=== PATIENT | male | born 1930 | race Caucasian/White ===

== ENCOUNTER 2022-05-10 14:32 | Inpatient (IN) ==
[2022-05-10 15:23] LABS: POC Calcium, Ionized 1.14 (1.16-1.32); POC Creatinine 2.4 (0.6-1.2); POC Potassium 4.7 (3.3-5.1)
[2022-05-10] MEDS ORDERED: 0.9 % SODIUM CHLORIDE 1,000 ML IV ONE (16:32)
[2022-05-10 17:42] LABS: Basophils # (Auto) 0.05 K/mcL (0.00-0.30); Basophils % (Auto) 0.4 % (0.0-2.0); Eosinophils # (Auto) 0.23 K/mcL (0.00-0.70); Eosinophils % (Auto) 2.1 % (0.0-7.0); Hematocrit 48.1 % (40.1-51.0); Hemoglobin 15.2 g/dL (13.7-17.5); Lymphocytes # (Auto) 1.73 K/mcL (1.50-4.80); Lymphocytes % (Auto) 15.5 % (15.5-49.0); Mean Cell Volume 95.2 fL (80.0-100.0); Mean Corpuscular HGB Conc 31.6 g/dL (31.0-36.0); Monocytes # (Auto) 1.52 K/mcL (0.10-0.90); Monocytes % (Auto) 13.6 % (1.0-12.0); Platelet Count 135 K/mcL (140-440); RBC 5.05 M/mcL (4.63-6.08); Red Cell Distribution Width 14.6 % (11.5-14.5); WBC 11.1 K/mcL (4.5-11.0)
--- NOTE | 2022-05-10 17:43 | Emergency Department Note ---
Nausea/Vomiting/Diarrhea HPI General Chief complaint: Nausea/Vomiting/Diarrhea Stated complaint: diarrhea and tired Time Seen by Provider: 05/10/22 15:26 Source: patient Mode of arrival: ambulatory Limitations: no limitations History of Present Illness HPI Narrative: 89-year-old male patient with history of dementia and CHF who lives on a memory care unit presents with family for diarrhea and subsequent weakness. His daughter states he was in his usual state of health on Friday when they saw their PCP for routine appointment. That night he started developing explosive diarrhea. On they took him to a family event for Thanksgiving dinner and he was noted to have a poor appetite and he was refusing to drink or eat. Today staff noted that he was significantly weaker and more lethargic so family brought him into the ER for evaluation. Patient has no recent antibiotic use. No previous history of C. difficile infection. Unknown if other long term residents have similar complaints. Related Data Home Medications Medication Instructions Recorded Confirmed multivitamin 1 tab PO QAM 05/07/22 05/07/22 Previous Rx's Medication Instructions Recorded acetaminophen 500 mg capsule 500 mg PO Q4H PRN pain #90 caps 01/29/22 aspirin 81 mg tablet,delayed 81 mg PO QDAY #30 tabs 01/29/22 release (Adult Low Dose Aspirin) benazepril 10 mg tablet 10 mg PO QDAY #30 tabs 01/29/22 bumetanide 0.5 mg tablet 0.5 mg PO QDAY #30 tabs 01/29/22 fluticasone propionate 50 2 spray intranasal QDAY #16 grams 01/29/22 mcg/actuation nasal spray,suspension levothyroxine 125 mcg tablet 125 mcg PO QDAY #30 tabs 01/29/22 (Levo-T) memantine 10 mg tablet (Namenda) 10 mg PO QAM #30 tabs 01/29/22 metoprolol succinate 50 mg 25 mg PO BID #30 tabs 01/29/22 tablet,extended release 24 hr sertraline 50 mg tablet 50 mg PO QDAY #30 tabs 01/29/22 tamsulosin 0.4 mg capsule (Flomax) 0.4 mg PO QDAY #30 caps 01/29/22 lorazepam 2 mg/mL oral concentrate 1 mg (0.5 mL) PO QPM PRN 03/19/22 agitation,anxiety #30 mL olanzapine 5 mg tablet (Zyprexa) 5 mg PO BID #90 tabs 05/06/22 quetiapine 50 mg tablet 50 mg PO QHS #60 tabs 05/06/22 Allergies Allergy/AdvReac Type Severity Reaction Status Date / Time No Known Drug Allergies Allergy Verified 03/05/22 09:32 Review of Systems ROS ROS Narrative: Narrative: All systems ED: reviewed and negative except as stated. [facility] Narrative Patient History Narrative: Narrative: Medical/Surgical/Family History All Active Problems (Updated 05/10/22 @ 20:12 by Blanca John PA-C) MIRELLA (acute kidney injury) (Acute) Acute dehydration (Acute) Diarrhea (Acute) Stage 2 acute kidney injury (Acute) Agitation due to dementia (Acute) Stroke-like symptom (Acute) Abdominal pain (Acute) Acute on chronic alteration in mental status (Acute) Abdominal pain (Acute) PSVT (paroxysmal supraventricular tachycardia) (Acute) Chest pain (Acute) Dizziness (Acute) Syncope (Acute) 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 (Acute) Insomnia (Acute) Confusion (Acute) Rib pain on right side (Acute) Fall (Acute) UTI (urinary tract infection) (Acute) Prostatitis (Acute) Generalized weakness (Acute) Dehydration (Acute) Recurrent falls (Acute) Urinary frequency (Acute) Dementia (Acute) BPH w urinary obs/LUTS (Chronic) Elevated PSA, between 10 and less than 20 ng/ml (Acute) Splenic artery aneurysm (Chronic) Short-term memory loss (Chronic) Hyperlipidemia (Chronic) Chronic kidney disease, stage 3 (moderate) (Chronic) CHF (congestive heart failure) (Chronic) Benign essential hypertension (Chronic) Hypothyroidism (Chronic) Stomach ulcer (Chronic) Depression (Chronic) Acid reflux (Chronic) Hypothyroidism (Acute) Essential (primary) hypertension (Acute) Depression (Acute) Anxiety (Acute) Medical History Acid reflux Benign essential hypertension Chest pain CHF (congestive heart failure) Chronic kidney disease, stage 3 (moderate) Depression Dizziness Hyperlipidemia Hypertension Hypothyroidism Stomach ulcer Surgical History History of appendectomy (~1971) History of cholecystectomy (~1971) History of colonoscopy History of prostate surgery (~2003) History of tonsillectomy (~1940) Family History Grandfather Leukemia Paternal Father Type II diabetes mellitus Mother High blood pressure Social History Alcohol Intake Frequency: 0-2 drinks per day Substance Use: does not use Exam Narrative Narrative: General: Alert and oriented to place and family members., NAD, lethargic appearing. Responding to yes or no questions HEENT: PERRL, EOMI, normocephalic. Dry mucous membranes. Normal facies Respiratory: Lungs clear to auscultation bilaterally. No respiratory distress. Unlabored breathing. Heart: Regular rate and rhythm, no murmurs/clicks/rubs. Abdomen: Diffuse discomfort to palpation. No rebound tenderness. Non distended, normal bowel tones. No organomegaly. Extremities: Warm and well perfused. No edema. DP 2+ bilaterally. No venous stasis. Neuro: No focal deficits. Cranial nerves II-XII grossly normal. Skin: Warm dry, no rashes or lesions, no cyanosis. Psych: Lethargic Heme/Lymph: No abnormal bruising General Limitations: no limitations Course Course Course Narrative: 89-year-old male presents with diarrhea, weakness, and lethargy Vital Signs Vital signs: Vital Signs Temperature 97.9 F 05/10/22 14:42 Pulse Rate 51 L 05/10/22 14:42 Respiratory Rate 18 05/10/22 14:42 Blood Pressure 107/59 05/10/22 14:42 Pulse Oximetry (%) 95 05/10/22 14:42 Oxygen Delivery Method 05/10/22 14:42 Temperature 97.9 F 05/10/22 14:42 Pulse Rate 72 05/10/22 18:45 Respiratory Rate 16 05/10/22 18:45 Blood Pressure 118/76 05/10/22 18:28 Pulse Oximetry (%) 96 05/10/22 18:45 Oxygen Delivery Method 05/10/22 14:42 MDM MDM Narrative Medical decision making narrative: Acute kidney injury Dehydration Diarrhea Patient is quite lethargic and weak and he would likely benefit from admission observation for IV fluid hydration. Stool enteric cultures are pending as well as C. difficile PCR. I have spoken to Dr. Mcintyre who has accepted the patient for admission. Lab Data Result diagrams: 05/10/22 15:19 Labs: Lab Results 05/10/22 05/10/22 05/10/22 Range/Units 15:17 15:19 15:19 WBC 11.1 H (4.5-11.0) K/mcL RBC 5.05 (4.63-6.08) M/mcL Hgb 15.2 (13.7-17.5) g/dL Hct 48.1 (40.1-51.0) % POC Hct 47.0 (41-55) MCV 95.2 (80.0-100.0) fL MCH 30.1 (26.0-34.0) pg MCHC 31.6 (31.0-36.0) g/dL RDW 14.6 H (11.5-14.5) % Plt Count 135 L (140-440) K/mcL MPV 12.0 (8.8-12.5) fL Immature Gran % (Auto) 0.4 (0.0-0.5) % Neut % (Auto) 68.0 (38.0-78.0) % Lymph % (Auto) 15.5 (15.5-49.0) % [place] % (Auto) 13.6 H (1.0-12.0) % Eos % (Auto) 2.1 (0.0-7.0) % Baso % (Auto) 0.4 (0.0-2.0) % Lymph # (Auto) 1.73 (1.50-4.80) K/mcL [place] # (Auto) 1.52 H (0.10-0.90) K/mcL Eos # (Auto) 0.23 (0.00-0.70) K/mcL Baso # (Auto) 0.05 (0.00-0.30) K/mcL Immature Gran # 0.04 (0.00-0.05) K/mcl Absolute Neutrophils 7.57 (1.80-8.00) K/mcL POC Sodium 141 (133-145) POC Potassium 4.7 (3.3-5.1) POC Chloride 109 H (96-108) POC Total CO2 24.0 (22-30) POC BUN 42 H (6-20) POC Creatinine 2.4 H (0.6-1.2) POC Glucose 93 (70-105) POC WB Ioniz Calcium 1.14 L (1.16-1.32) Urine Color Urine Appearance (Clear) Urine pH (5.0-9.0) Ur Specific [place] (1.000-1.035) Urine Protein (Negative) mg/dL Urine Glucose (UA) (Negative) mg/dL Urine Ketones (Negative) mg/dL Urine Occult Blood (Negative) emily/mcL Urine Nitrate (Negative) Urine Bilirubin (Negative) mg/dL Urine Urobilinogen mg/dL Ur Leukocyte Esterase (Negative) /uL Urine RBC (0-3) /hpf Urine WBC (0-4) /hpf Ur Squamous Epith Cells (0-4) /hpf Urine Bacteria (0) /hpf Hyaline Casts (0-2) /lph Ur Culture Indicated? POC Troponin I < 0.02 (0.00-0.08) 05/10/22 Range/Units 18:48 WBC (4.5-11.0) K/mcL RBC (4.63-6.08) M/mcL Hgb (13.7-17.5) g/dL Hct (40.1-51.0) % POC Hct (41-55) MCV (80.0-100.0) fL MCH (26.0-34.0) pg MCHC (31.0-36.0) g/dL RDW (11.5-14.5) % Plt Count (140-440) K/mcL MPV (8.8-12.5) fL Immature Gran % (Auto) (0.0-0.5) % Neut % (Auto) (38.0-78.0) % Lymph % (Auto) (15.5-49.0) % [place] % (Auto) (1.0-12.0) % Eos % (Auto) (0.0-7.0) % Baso % (Auto) (0.0-2.0) % Lymph # (Auto) (1.50-4.80) K/mcL [place] # (Auto) (0.10-0.90) K/mcL Eos # (Auto) (0.00-0.70) K/mcL Baso # (Auto) (0.00-0.30) K/mcL Immature Gran # (0.00-0.05) K/mcl Absolute Neutrophils (1.80-8.00) K/mcL POC Sodium (133-145) POC Potassium (3.3-5.1) POC Chloride (96-108) POC Total CO2 (22-30) POC BUN (6-20) POC Creatinine (0.6-1.2) POC Glucose (70-105) POC WB Ioniz Calcium (1.16-1.32) Urine Color Lt. yellow Urine Appearance Clear (Clear) Urine pH 5.5 (5.0-9.0) Ur Specific [place] >= 1.030 (1.000-1.035) Urine Protein Negative (Negative) mg/dL Urine Glucose (UA) Negative (Negative) mg/dL Urine Ketones Negative (Negative) mg/dL Urine Occult Blood Small A (Negative) emily/mcL Urine Nitrate Negative (Negative) Urine Bilirubin Negative (Negative) mg/dL Urine Urobilinogen Normal mg/dL Ur Leukocyte Esterase Negative (Negative) /uL Urine RBC 11 H (0-3) /hpf Urine WBC 2 (0-4) /hpf Ur Squamous Epith Cells 0 (0-4) /hpf Urine Bacteria None (0) /hpf Hyaline Casts 11 H (0-2) /lph Ur Culture Indicated? No POC Troponin I (0.00-0.08) ED POC Tests ED POC Tests: SILVIA - SARS Antigen Negative Discharge Plan Patient/Caregiver Discharge Instructions Pt seen by TELETYPE MECHANIC/PA only: Yes Clinical Impression: MIRELLA (acute kidney injury), Acute dehydration Patient Disposition: Xfer As Inpt ([facility]) Discharge Date/Time: 05/10/22 19:40 Discharge Comment: on WW at 1916 hrs
[2022-05-10] MEDS ORDERED: LIDOCAINE 2% URO-JET 10 ML JEL.PF.APP UR ONE (18:05)
[2022-05-10] MEDS: 0.9 % SODIUM CHLORIDE 1,000 ML IV SCH ×2 (18:35→22:24)
--- NOTE | 2022-05-10 18:49 | Internal Med History&Physical ---
HPI History of Present Illness Patient information: Note initiated : 05/10/22 at 6:42 pm Service Date, if different from initiated Date: [] Patient: Deyvi Walton a 89 y/o M admitted on for diarrhea and tired. Chief Complaint: [diarrhea, altered mental status] Chief complaint: diarrhea, altered mental status History of present illness: Mr. Walton is a 89 year old M history of BPH, dementia, depression anxiety, hypertensions, hypothyroidism, congestive heart failure, presenting with 3-day history of diarrhea, altered mentation, decreased oral intake. He is a [facility]. Over the past 3 days, he has been noted by his staff to have multiple episode of diarrhea, decreased oral intake, and altered mentation in terms of decreased alertness and weakness. He was starts being sent to our ED for further evaluations. The following history is limited by the patient's clinical situations and his mentations. Vital signs at ED presentations within normal limits. Labs significant for mild leukocytosis with WBC 11.1. Lactic acid pending. Chemistry significant for serum creatinine level of 2.4 with a baseline 1.4. UA also pending. No imaging was done so far. Admission request was called for acute kidney injury in the context of chronic kidney disease and associated dehydration's. Review of Systems ROS unobtainable: due to mental status PFSH PFSH All Active Problems (Updated 05/10/22 @ 18:54 by Ihsan Mcintyre MD) Diarrhea (Acute) Stage 2 acute kidney injury (Acute) Agitation due to dementia (Acute) Stroke-like symptom (Acute) Abdominal pain (Acute) Acute on chronic alteration in mental status (Acute) Abdominal pain (Acute) PSVT (paroxysmal supraventricular tachycardia) (Acute) Chest pain (Acute) Dizziness (Acute) Syncope (Acute) 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 (Acute) Insomnia (Acute) Confusion (Acute) Rib pain on right side (Acute) Fall (Acute) UTI (urinary tract infection) (Acute) Prostatitis (Acute) Generalized weakness (Acute) Dehydration (Acute) Recurrent falls (Acute) Urinary frequency (Acute) Dementia (Acute) BPH w urinary obs/LUTS (Chronic) Elevated PSA, between 10 and less than 20 ng/ml (Acute) Splenic artery aneurysm (Chronic) Short-term memory loss (Chronic) Hyperlipidemia (Chronic) Chronic kidney disease, stage 3 (moderate) (Chronic) CHF (congestive heart failure) (Chronic) Benign essential hypertension (Chronic) Hypothyroidism (Chronic) Stomach ulcer (Chronic) Depression (Chronic) Acid reflux (Chronic) Hypothyroidism (Acute) Essential (primary) hypertension (Acute) Depression (Acute) Anxiety (Acute) Medical History Acid reflux Benign essential hypertension Chest pain CHF (congestive heart failure) Chronic kidney disease, stage 3 (moderate) Depression Dizziness Hyperlipidemia Hypertension Hypothyroidism Stomach ulcer Surgical History History of appendectomy (~1971) History of cholecystectomy (~1971) History of colonoscopy History of prostate surgery (~2003) History of tonsillectomy (~1939) Family History Grandfather Leukemia Paternal Father Type II diabetes mellitus Mother High blood pressure Social History marital status: occupational status: retired alcohol intake frequency: 0-2 drinks per day substance use type: does not use MEDS/ALLERGIES Home Medications and Allergies Home Medications Medication Instructions Recorded Confirmed Type acetaminophen 500 mg capsule 500 mg PO Q4H PRN pain #90 caps 01/29/22 05/07/22 Rx aspirin 81 mg tablet,delayed 81 mg PO QDAY #30 tabs 01/29/22 05/07/22 Rx release (Adult Low Dose Aspirin) benazepril 10 mg tablet 10 mg PO QDAY #30 tabs 01/29/22 05/07/22 Rx bumetanide 0.5 mg tablet 0.5 mg PO QDAY #30 tabs 01/29/22 05/07/22 Rx fluticasone propionate 50 2 spray intranasal QDAY #16 grams 01/29/22 05/07/22 Rx mcg/actuation nasal spray,suspension levothyroxine 125 mcg tablet 125 mcg PO QDAY #30 tabs 01/29/22 05/07/22 Rx (Levo-T) memantine 10 mg tablet (Namenda) 10 mg PO QAM #30 tabs 01/29/22 05/07/22 Rx metoprolol succinate 50 mg 25 mg PO BID #30 tabs 01/29/22 05/07/22 Rx tablet,extended release 24 hr sertraline 50 mg tablet 50 mg PO QDAY #30 tabs 01/29/22 05/07/22 Rx tamsulosin 0.4 mg capsule (Flomax) 0.4 mg PO QDAY #30 caps 01/29/22 05/07/22 Rx lorazepam 2 mg/mL oral concentrate 1 mg (0.5 mL) PO QPM PRN 03/19/22 05/07/22 Rx agitation,anxiety #30 mL olanzapine 5 mg tablet (Zyprexa) 5 mg PO BID #90 tabs 05/06/22 05/07/22 Rx quetiapine 50 mg tablet 50 mg PO QHS #60 tabs 05/06/22 05/07/22 Rx multivitamin 1 tab PO QAM 05/07/22 05/07/22 History Allergies Allergy/AdvReac Type Severity Reaction Status Date / Time No Known Drug Allergies Allergy Verified 03/05/22 09:32 EXAM Constitutional Vitals: Temp Pulse Resp BP Pulse Ox O2 Del Method 36.6 C 75 12 118/76 96 05/10/22 14:42 05/10/22 18:28 05/10/22 18:27 05/10/22 18:28 05/10/22 18:27 05/10/22 14:42 General appearance: cooperative and no acute distress Head Head exam: Present atraumatic and normocephalic Eye Eye exam: Present EOMI and PERRL ENT ENT exam: Present mucous membranes moist, normal exam and normal external ear exam Neck Neck exam: Present normal inspection; Absent lymphadenopathy, tenderness or thyromegaly Respiratory Respiratory exam: Absent accessory muscle use, respiratory distress or wheezes Cardiovascular Cardiovascular exam: Present normal rate and rhythm; Absent JVD GI/Abdominal GI/Abdominal exam: Present normal bowel sounds, soft and tenderness; Absent organomegaly Additional comments: Suprapubic tenderness Rectal Rectal exam: Present deferred Extremities Exam Extremities exam: Present full ROM, normal capillary refill and normal inspection; Absent tenderness Neurological Exam Neurological exam: Present alert, altered and CN II-XII intact; Absent motor sensory deficit or oriented X3 Psychiatric Psychiatric exam: Present normal affect and normal mood; Absent anxious or depressed Skin Skin exam: Present dry and intact DATA Data Completed and Pending Labs: Labs from last 24 hours 1105/10/22 05/10/22 15:19 15:19 15:17 WBC 11.1 H RBC 5.05 Hgb 15.2 Hct 48.1 POC Hct 47.0 MCV 95.2 MCH 30.1 MCHC 31.6 RDW 14.6 H Plt Count 135 L MPV 12.0 Immature Gran % (Auto) 0.4 Neut % (Auto) 68.0 Lymph % (Auto) 15.5 [place] % (Auto) 13.6 H Eos % (Auto) 2.1 Baso % (Auto) 0.4 Lymph # (Auto) 1.73 [place] # (Auto) 1.52 H Eos # (Auto) 0.23 Baso # (Auto) 0.05 Immature Gran # 0.04 Absolute Neutrophils 7.57 POC Sodium 141 POC Potassium 4.7 POC Chloride 109 H POC Total CO2 24.0 POC BUN 42 H POC Creatinine 2.4 H POC Glucose 93 POC WB Ioniz Calcium 1.14 L POC Troponin I < 0.02 A/P Assessment and plan (1) Dehydration: Status: Acute (2) Dementia: Status: Acute Qualifiers: Dementia behavioral disturbance: with behavioral disturbance Dementia type: unspecified type Qualified Code(s): F03.91 - Unspecified dementia with behavioral disturbance (3) Chronic kidney disease, stage 3 (moderate): Status: Chronic (4) CHF (congestive heart failure): Status: Chronic Qualifiers: Heart failure type: systolic Heart failure chronicity: chronic Qualified Code(s): I50.22 - Chronic systolic (congestive) heart failure (5) Benign essential hypertension: Status: Chronic (6) Hypothyroidism: Status: Chronic (7) Depression: Status: Chronic Qualifiers: Depression Type: major depressive disorder Major depression recurrence: recurrent Active/Remission status: currently active Major depression episode severity: moderate Qualified Code(s): F33.1 - Major depressive disorder, recurrent, moderate (8) Anxiety: Status: Acute (9) Stage 2 acute kidney injury: Status: Acute (10) BPH w urinary obs/LUTS: Status: Chronic (11) Diarrhea: Status: Acute Narrative A/P Narrative: Assessment and Plans: 1. Acute kidney injury with chronic kidney disease III with associated clinical dehydration: Observation med surg s/p 1L IV fluid bolus given in the ED, to be followed by NS@100cc/hr Investigations of the cause of the dehydration from diarrhea include CT abdomen pelvis, and CT of colitis PCR Repeat CMP in the morning to trend kidney functions Avoid nephrotoxic agents and holding diuretics Bumex and Benazepril from home regimen 2. Acute onset diarrhea: Investigations of the cause of the dehydration from diarrhea include CT abdomen pelvis, and CT of colitis PCR IV fluid for fluid replacement, see above 3. Dementia: Memantine 4. Anxiety/Depression: Ativan PO PRN anxiety Quetiapine Sertraline 5. h/o BPH: Continue Flomax 6. Essential hypertension: Avoid nephrotoxic agents and holding diuretics Bumex and Benazepril from home regimen Continue Metoprolol ER 7. Hypothyroidism: Continue thyroid replacement therapy GI ppx: not currently indicated DVT ppx: Heparin Code status: Full Prognosis: guarded Disposition: observation med surg Time Spent With Patient Time: Total time spent is greater than 50% in coordination of care (as documented) at patient's floor/unit and/or counseling patient: Total time spent with greater than 50% in coordination of care (as documented) at patient's floor/unit and/or counseling patient:: 50 - 70 minutes
[2022-05-10 19:47] LABS: Appearance,Urine CLEAR (Clear); Bilirubin,Urine NEGATIVE (Negative); Color,Urine LT. YELLOW; Culture Indicated,Urine No; Glucose,Urine (UA) NEGATIVE (Negative); Ketones,Urine NEGATIVE (Negative); Leukocyte Esterase,Urine NEGATIVE /uL (Negative); Nitrate,Urine NEGATIVE (Negative); PH,Urine 5.5 (5.0-9.0); Protein,Urine NEGATIVE (Negative); Specific Gravity,Urine >= 1.030 (1.000-1.035); Urine Blood SMALL ery/mcL (Negative); Urine Hyaline Cast 11 /lph (0-2); Urine RBC 11 /hpf (0-3); Urine Squamous Epithelial Cell 0 /hpf (0-4); Urine WBC 2 /hpf (0-4); Urobilinogen,Urine Normal
[2022-05-10] MEDS ORDERED: IPRATROPIUM/ALBUTEROL 3 ML AMPUL.NEB NEB PRN (20:04)
[2022-05-10] MEDS ORDERED: ONDANSETRON 4 MG/2 ML VIAL IV PRN (20:04)
--- NOTE | 2022-05-10 21:17 | Cat Scan Report ---
History: Abdominal pain, diarrhea, prior appendectomy, cholecystectomy and prostate surgery6 TECHNIQUE: The patient was imaged without contrast in axial plane at 2.5 mm intervals from above the diaphragm through the symphysis pubis. Sagittal and coronal reformats were created. The radiation exposure was limited using dose reduction technology. FINDINGS: There are bands of atelectasis and scarring in both lung bases. These have increased since prior CT done on 02/10/22. No pleural effusion is present. The heart is mildly enlarged left ventricle is dilated. Evaluation the abdominal organs without contrast is somewhat limited. There are multiple cysts scattered throughout the liver. The overall size liver is normal. Cysts are chronic stable finding. The spleen is normal in size and homogeneous. There is a densely calcified saccular aneurysm in the left splenic artery in the hilum and spleen. There is no associated hemorrhage and it has not enlarged. There is fatty infiltration the pancreas and no evidence of pancreatitis. The gallbladder is absent. The bile ducts are nondilated. There are multiple scattered simple cysts in both kidneys. There is no kidney stone or hydronephrosis. Renal cysts are also stable finding. Amount calcified plaque is present along the wall of normal caliber abdominal aorta and iliac arteries. There is a large amount of liquefied stool throughout the large intestine and also moderate amount of fluid in the small intestine. There are air-fluid levels in both large and small intestine. There are multiple diverticula in the descending and sigmoid colon. There is mild diverticulitis in the distal descending colon where it joins with the sigmoid. This is at the level of a left inguinal hernia. The hernia does not contain bowel but the inflammation from the diverticulum extends to the internal ring of the hernia. The inflammation is new since a prior CT done on 02/10/22. There is no abscess or free intraperitoneal air. No ascites is present. Prostate is severely enlarged and protrudes into the bladder... The bladder from the floor the pelvis. The bladder is decompressed by Huang catheter. Small bladder diverticulum is again seen. There is degenerative disc disease and arthritis from L3-4 to L5-S1. IMPRESSION: Mild diverticulitis at the junction of the descending and sigmoid colon. There is no abscess. Ileus Stable hepatic and renal cysts Increasing discoid atelectasis in both lower lobes Dr. Mcintyre was called with the results Interpreted and Authenticated by: Aneesh Calzada 05/10/22
--- OUTSIDE RECORDS SUMMARY | 2022-05-10 21:38 | External Medical Summary | Continuity of Care Document ---
:1930 Author Organization [facility] Care Team Providers Name Role Phone [facility] Unavailable Unavailable Problems Combined list of problems from Department of [facility] and [facility] facilities. It does not include entries that were removed or entered in error. Problem Status Onset Problem Type Date of Comments Source Date Resolution Delirium Active Condition Ambulatory co-occurrent with 0 Ph armacy dementia Essential Active Condition Ambulatory hypertension 9 Pharmac y Depression Active Condition Ambulator y 9 Pharmacy Essential tremor Active Condition Amb ulatory 9 Pharmacy Hyperlipidemia Active Condition Ambul atory 9 Pharmacy Hypothyroid Active Condition Ambulato ry 9 Pharmacy Minimal cognitive Active Condition Am bulatory impairment 9 Pharmacy Seasonal allergy Active Condition Amb ulatory 9 Pharmacy Thrombocytopenia Active Condition Amb ulatory 9 Pharmacy Dementia with Active Condition Ambula tory behavioral Pharmacy disturbance Delirium Active Condition MORAIMA M . co-occurrent with [facility] dementia [facility] Depression Active Condition MORAIMA Yoon. [facility] Essential Active Condition [facility]AIMA M . [facility] Essential tremor Active Condition MYAELIN Early [facility] Hyperlipidemia Active Condition RONNY Early [facility] Hypothyroid Active Condition MORAIMA M. [facility] Minimal cognitive Active Condition BRYAN CONN M. impairment [facility] T [facility] Seasonal allergy Active Condition MAYELIN Early [facility] Thrombocytopenia Active Condition MAYELIN Early [facility] Medications Combined list of outpatient medications from Department of [facility] and [facility] facilities. Medications provided include 1) outpatient medications from the last 15 months, and 2) patient-reported medications. Medication Details Route Status Patient Prescription Prescription Last Ordering Order Source Instructions Expires Number Dispense Provider Date Date ASPIRIN TAKE ONE ORAL ACTIVE TREY RITCHIE ISTO 81MG TAB,EC TABLET U 2019 [facility] Allergies, Adverse Reactions, Alerts Combined list of allergies from Department of Defense and Veterans Affairs facilities. It does not include entries that were removed or entered in error. Substance Category Reaction Severity Reaction Status Date Comments S ource type Reported SEASONAL Propensity Propensity active MORAIMA ALLERGIES to adverse to adverse 9 M. reaction reaction WAINWR IGHT (finding) (finding) [facility] Seasonal Allergy to Allergy to Active A mbulatory allergy substance substance Phar leonard Immunizations Combined list of available immunizations from the Department of Defense and Veterans Affairs facilities. Immunization Series Date Administered Site Reaction Lot CVX Drug St atus Comments Source Given By Number Code Raw Stock Machine Loader ZOSTER 2 complet LEWI STO RECOMBINANT [facility] zoster complet zoster vac cine, inactivated Ambulat vaccine, 2019 ed 06/30/19 ory inactivated Recorded Pharmac y ZOSTER 1 complet LEWI STO RECOMBINANT 2018 [facility] zoster complet zoster vac cine, inactivated Ambulat vaccine, 2019 ed 02/16/19 ory inactivated Recorded Pharmac y influenza complet Result Ambulat virus 2019 ed Comment: or[place] vaccine, [place] Pharm ac unspecified y INFLUENZA, complet [place] JONATHA UNSPECIFIED 2019 ed N M. FORMULATION WA INWRI GHT [facility] Vital Signs Combined list of inpatient and outpatient Vital Signs from Department of Defense and Veterans Affairs, ranging from 12 months to all on record, depending upon the facility. Vital Sign Value Date Comments Source Systolic Blood Pressure 153mm[Hg] 05/18/2019 22:03:09 Ambulatory Pharmacy Diastolic Blood Pressure 65mm[Hg] 05/18/2019 22:03:09 Ambulatory Pharmacy Systolic Blood Pressure 148mm[Hg] 02/16/2019 20:29:51 Ambulatory Pharmacy Diastolic Blood Pressure 80mm[Hg] 02/16/2019 20:29:51 Ambulatory Pharmacy Systolic Blood Pressure 159mm[Hg] 05/18/2019 21:49:16 Ambulatory Pharmacy Diastolic Blood Pressure 88mm[Hg] 05/18/2019 21:49:16 Ambulatory Pharmacy Encounters Combined list of: 1) Encounters from Department of Veterans Affairs facilities going back up to the last 18 months. 2) Encounters from the Department of Defense facilities going back up to 280 months. Location Location Encounter Encounter Reason Attending ADM [place] Stat Disposition Source Details Type Number For Provider Date Date Visit Outpatient [id number] TINO SYLVIA Encounter [id number] /2020 Amelia LOWERY Amy [facility] Outpatient [id number] 12/05 TINO SYLVIA Encounter [id number] Amelia LOWERY Amy [facility] Outpatient [id number] 05/03 TINO SYLVIA Encounter [id number] Amelia LOWERY Amy [facility] Outpatient [id number] TINO SYLVIA Encounter [id number] Amelia LOWERY Amy [facility] Outpatient [id number] 06/05 TINO SYLVIA Encounter [id number] Amelia LOWERY Amy [facility] Outside [id number] 02/06 02/06 687 Documentat /2021 Jonatha ion Only n Car [facility] Between [id number] 02/07 02/07 Discharge 687 Visit /2021 [place] [facility] Outside [id number] 02/08 02/08 687 Documentat /2021 Jonatha ion Only amelia [facility] Between [id number] 02/08 02/08 Discharge [id number] Visit /2021 Disposition: [place] Home or Self n [facility] Between [id number] 02/11 02/11 Discharge 687 Visit /2021 Disposition: [place] [facility] Office of Communi [facility] Procedures Combined list of: 1) Procedures from Department of Veterans Affairs facilities going back up to the last 18 months, not all [place] non-surgical procedures are included; 2) All procedures from the Department of [facility] facilities. Procedure Procedure Type Code Date Perfomer Comments Sourc e No data available [facility] Pharmacy for this section Social History Combined list of available smoking, tobacco, and other social history [facility]. Social History Type Response Date Comment Source Tobacco smoking status [facility] Assessment and Plan Combined list of future care activities from Department of Defense and Veterans Affairs facilities (e.g., assessment and plan notes, appointments, orders, and referrals). Additional future care activities may be listed in the Plan of Care section. Result Assessment and Plan Date Source Assessment and Plan Extracted from:Title: Outpatient Foll ow Up Note 05/11/2022 Ambulatory Pharmacy Author: Will Jennings ARNP Date: 02/07/22 1.Dementia with behavioral disturbance Ordered: Telephone At this pointI am going to see if we can helpcalm the patientdown from the severe agitation that he has been experiencing. The patient has responded positively in the past to ol anzapineso I am going to or kiara 5 mg at bedtime nightly and discontinue quetiapine, memantine, and trazodone. I will continue sertraline 50 mg by mouth once daily. I also will start&#16 0;gabapentin 300 mg by mouth every4 hours as needed for anxiety or agitation. I did give verbal orderswhich will be filled by a pharmacy in the community. Follow-up will be in 3 weeks or as needed. Future [facility] 01/13/22 Advance Directives List of completed, amended, or rescinded Advance Directives on record at Department of Veterans Affairs facilities. An actual copy of the Directive is not included. Date Advance Directive Provider Source 12/11/2018 ADVANCE DIRECTIVE DISCUSSION KAIDEN GONZALEZ [facility] Functional Status Combined list of recent functional and cognitive assessments recorded at Department of Defense and Veterans Affairs (VA).VA Functional [place] Measurement (FIM) Scale: 1 = Total Assistance (Subject = 0% +), 2 = Maximal Assistance (Subject = 25% +), 3 = Moderate Assistance (Subject = 50% +), 4 = Mi nimal Assistance (Subject = 75% +), 5 = Supervision, 6 = Modified [place] (Device), 7 = Complete [place] (Timely, Safely). Assessment Source Assessment Type Assessment Assessment Assessmen t Date/Time Skill Score Details No data available for this section
--- OUTSIDE RECORDS SUMMARY | 2022-05-10 21:38 | External Medical Summary | Encounter Summary ---
:1930 Author Organization [facility] Address [address] [place] [address] Support Name Relationship Address Phone TANVIR PRICE Unavailable [address] [facility] [phone] [place] [address] MARK PRICE Unavailable [address] [facility] [phone] [address] [place] [address] Selected Encounter This section includes the information on record at [place] for the Encounter. Date/Time Encounter Type Encounter Description Reason Provider Source Jun 05, 2021 01:00 Outpatient Encounter COMM[facility]ITY [facility]ARE PM CONSULT IHE Encounter Template Text not used by [place] Plan of Treatment: Future Appointments (+ 6 months) and Future Tests (+/- 45 days) The Plan of Treatment section includes future care activities for the patient from all [place] treatmentfacilities. This section includes future appointments and future orders which are active, pending orscheduled.Active, Pending, and Scheduled Orders This section includes a listing of several types of active, pending, and scheduled orders, including clinic medications orders, diagnostic test orders, procedure orders and consult orders; where the start date of the order is 45 days before the date of the Encounter or 45 days after the date of the Encounter. The data comes from all [place] treatment facilities. Test Date/Time Test Type Test Details Facility Name May 21, 2021 11:18 AM Consult Order COMMUNITY CARE-PRIMARY MAYELIN [facility]ER C[facility] Cons Road Supervisor's [facility] Choice Advance Directives: All historical and current Section Date Range: From patient's date of to the date document was created. This section includes ALL of a patient's completed or amended VA Advance and Rescinded Directives. The entries below indicate that a directive exists for the patient, but an actual copy is not included with this document. The data comes from all [place] facilities. Date Advance Directives Provider Source Dec 11, 2018 ADVANCE DIRECTIVE DISCUSSION KAIDEN GONZALEZ [facility]
--- OUTSIDE RECORDS SUMMARY | 2022-05-10 21:39 | External Medical Summary ---
:1930 Author Care Team Providers Name Role Phone GREG ALMEIDA Referring Provider [phone] CAITLYN UPTON CHIEF ENGINEER'S HELPER-C Programs Manager [phone] Allergies Code Code System Name Reaction Severity Status Onset NKDA Medications Name Status Start Date Stop Date acetaminophen 500 mg capsule Active 12/11/2018 Not available Take 1 capsule every 4-6 hours by oral route. aspirin 81 mg tablet,delayed release Active 12/11/2018 Not available Take 1 tablet every day by oral route. benazepril 10 mg tablet Active 12/11/2018 Not avai lable Take 1 tablet every day by oral route. bupropion HCl XL 150 mg 24 hr tablet, extended release Completed 12/11/2018 12/11/2018 150 mg by oral route. fluticasone propionate 50 mcg/actuation nasal spray,suspensi on Active 12/11/2018 Not available 2 sprays by nasal route. levothyroxine 25 mcg capsule Active 12/11/2018 Not available Take 1 capsule every day by oral route. lidocaine HCl 4 % topical cream Active 12/11/2018 Not available 1 application by topical route. loratadine 10 mg capsule Active 12/11/2018 Not marbin ilable Take 1 capsule every day by oral route. meclizine 12.5 mg tablet Active 12/11/2018 Not marbin ilable Take 1 tablet every day by oral route. sertraline 100 mg tablet Completed 12/11/2018 021 Take 1 tablet every day by oral route. sertraline 50 mg tablet Active 12/11/2018 Not avai lable Take 1 tablet every day by oral route. tamsulosin ER 0.4 mg capsule,extended release Active Not available Take 1 capsule every day by oral route. terazosin 2 mg capsule Active 12/11/2018 Not avail able Take 1 capsule every day by oral route. triamcinolone acetonide 0.5 % topical cream Active 03/16 Not available 1 application by topical route. Notes: Patient is from an assisted rosa ing and they did not send medication bottles or list. -FP, DATA CONTROL ASSISTANT Problems Name Status Onset Date Source Hypothyroidism Active External Hyperlipidemia Active External Anxiety Active External Depressive Disorder Active External Essential Hypertension Active External Benign Essential Hypertension Active Ex ternal Hypertensive Disorder Unknown External Congestive Heart Failure Active Externa l Gastroesophageal Reflux Disease Active External Gastric Ulcer Active External Chronic Kidney Disease Stage 3 Active E xternal Procedures Date Name Performed by 02/07/2021 Keyboard Specialist [facility] [employer] [facility], [place] [address] Results Lab Results None recorded. Past Encounters 03/23/2021 Benign Essential Hypertension; Congestiv e Heart Failure; Hyperlipidemia; Chest Pain; Dementia Caitlyn Upton, CHIEF ENGINEER'S HELPER: [address] [place] [address], [place] [phone], Ph. 02/21/2021 Nonsustained Ventricular Tachycardia; Pr emature Atrial Contraction; Ventricular Premature Beats Juan F Pereira MD: [address] [place] [address] , [place] [phone], Ph. Social History Tobacco Smoking Status Former Smoker Vaccine List None recorded. Plan of Care Reminders Provider Appointments None recorded. Lab None recorded. Referral None recorded. Procedures None recorded. Surgeries None recorded. Imaging None recorded. Vitals 03/23/2021 10:30AM CARDIO- NEW PATIENT Height Weight BMI Blood Pressure 5 ft 3 in 157.4 lbs 27.9 kg/m2 144/88 mm[Hg] 02/21/2021 07:30AM CARDIO-ROLL MECHANIC Height 5 ft 3 in 07/14/2020 01:20PM IR- NEW PATIENT Height Weight BMI Blood Pressure 5 ft 3 in 161 lbs 28.5 kg/m2 (1) 161/91 mm[H g] (2) 170/103 mm[H g] 01/19/2020 Height Weight BMI Blood Pressure 5 ft 3 in 157 lbs 27.8 kg/m2 175/84 mm[Hg]
[2022-05-10] MEDS ORDERED: PIPERACILLIN SODIUM/TAZOBACTAM 3.375 GM in DEXTROSE 5% IN WATER 50 ML IV SCH (22:00)
[2022-05-10] MEDS: ACETAMINOPHEN 325 MG TABLET PO PRN (22:22)
[2022-05-10] MEDS: HEPARIN 5,000 UNIT/ML VIAL SQ SCH (22:23)
[2022-05-10] MEDS: 0.9 % SODIUM CHLORIDE 10 ML SYRINGE IV SCH (22:23)
[2022-05-10] MEDS: traZODone HCL 50 MG TABLET PO PRN (22:24)
[2022-05-10] MEDS: PIPERACILLIN SODIUM/TAZOBACTAM 3.375 GM in DEXTROSE 5% IN WATER 50 ML IV SCH (22:28)
[2022-05-11] MEDS: 0.9 % SODIUM CHLORIDE 1,000 ML IV SCH ×4 (00:45→16:15)
[2022-05-11] MEDS: PIPERACILLIN SODIUM/TAZOBACTAM 3.375 GM in DEXTROSE 5% IN WATER 50 ML IV SCH ×3 (05:03→23:01)
[2022-05-11] MEDS: 0.9 % SODIUM CHLORIDE 10 ML SYRINGE IV SCH ×3 (05:04→20:11)
[2022-05-11 06:50] LABS: Basophils # (Auto) 0.04 K/mcL (0.00-0.30); Basophils % (Auto) 0.4 % (0.0-2.0); Eosinophils # (Auto) 0.27 K/mcL (0.00-0.70); Eosinophils % (Auto) 2.7 % (0.0-7.0); Hematocrit 42.4 % (40.1-51.0); Hemoglobin 13.5 g/dL (13.7-17.5); Lymphocytes # (Auto) 1.42 K/mcL (1.50-4.80); Lymphocytes % (Auto) 14.1 % (15.5-49.0); Mean Cell Volume 94.9 fL (80.0-100.0); Mean Corpuscular HGB Conc 31.8 g/dL (31.0-36.0); Mean Platelet Volume 11.4 fL (8.8-12.5); Monocytes # (Auto) 1.37 K/mcL (0.10-0.90); Monocytes % (Auto) 13.6 % (1.0-12.0); Neutrophils % (Auto) 68.8 % (38.0-78.0); Platelet Count 86 K/mcL (140-440); RBC 4.47 M/mcL (4.63-6.08); Red Cell Distribution Width 14.3 % (11.5-14.5)
[2022-05-11 07:07] LABS: ALT/SGPT 37 U/L (<40); AST/SGOT 32 U/L (<40); Albumin 3.2 gm/dL (3.2-5.2); Albumin/Globulin Ratio 1.4 (1.0-2.3); Alkaline Phosphatase 75 U/L (39-117); Bilirubin,Total 0.6 mg/dL (0.1-1.0); Blood Urea Nitrogen 37 mg/dL (8-23); Carbon Dioxide 20 mmol/L (22-30); Chloride 108 mmol/L (96-108); Globulin 2.3 gm/dL (2.2-3.7); Glomerular Filtration Rate 35; Glucose 74 mg/dL (70-105)
[2022-05-11] MEDS: HEPARIN 5,000 UNIT/ML VIAL SQ SCH ×2 (09:14→20:10)
[2022-05-11] MEDS ORDERED: NON FORMULARY MEDICATION 1 DOSE MISCELL (Acetaminophen 500 mg capsule) PO PRN (09:47)
[2022-05-11] MEDS ORDERED: LORazepam 2 MG/ML ORAL.SOL PO PRN (09:47)
[2022-05-11] MEDS: ACETAMINOPHEN 325 MG TABLET PO PRN ×2 (12:42→19:03)
--- NOTE | 2022-05-11 14:36 | Internal Med Progress Note ---
SUBJECTIVE Subjective Patient information: Note initiated : 05/11/22 at 2:34 pm Service Date, if different from initiated Date: [] Patient: Deyvi Walton a 89 y/o M admitted on 05/10/22 for diarrhea and tired- MIRELLA,Dehydration,Diarrhea. Chief Complaint: [] Interval history: Mr. Walton is a 89 year old M history of BPH, dementia, depression anxiety, hypertensions, hypothyroidism, congestive heart failure, presenting with 3-day history of diarrhea, altered mentation, decreased oral intake. He is a facility called [facility]. Over the past 3 days, he has been noted by his staff to have multiple episode of diarrhea, decreased oral intake, and altered mentation in terms of decreased alertness and weakness. He was starts being se nt to our ED for further evaluations. The following history is limited by the patient's clinical situations and his mentations. Vital signs at ED presentations within normal limits. Labs significant for mild leukocytosis with WBC 11.1. Lactic acid pending. Chemistry significant for serum creatinine level of 2.4 with a baseline 1.4. UA also pending. No imaging was done so far. Admission request was called for acute kidney injury in the context of chronic kidney disease and associated dehydration's. 05/11: CT of the abdomen and pelvis found evidence of descending colon/sigmoid colon di verticulitis without any other complications. Afebrile overnight. C diff CPR negative. Patient does not have a great appetite. Patient currently denies any abdominal pain. He denies nausea vomiting or diarrhea at the moment. Continue IV fluid for acute kidney injury while monitoring daily kidney functions. Continue Zosyn for now awaiting clinical improvement. Constitutional Vitals: Vital Signs Temp Pulse Resp BP Pulse Ox O2 Del Method 36.8 C 77 14 157/77 94 05/11/22 12:00 05/11/22 12:00 05/11/22 12:00 05/11/22 12:00 05/11/22 12:00 05/11/22 12:00 Period Temp Pulse Resp BP Sys/[place] Pulse Ox O2 Del Method O2 Flow Rate Last 24 Hr 36.3 C-36.9 C 51-77 - 98-157/56-90 92-97 Room Air-Room Air Intake and Output 05/11/22 05/11/22 05/11/22 03:59 11:59 19:59 Intake Total 50 1115 150 Output Total 1000 Balance 50 115 150 Weight 63.684 kg Patient Weight 05/12/22 03:59 Weight 63.684 kg Intake & Output: Intake & Output 05/11/22 05/11/22 05/11/22 03:59 11:59 19:59 Intake Total 50 1115 150 Output Total 1000 Balance 50 115 150 Weight 63.684 kg Intake: IV 50 715 Sodium Chloride 0.9% 1,000 ml @ 0 665 100 mls/hr IV .Q10H VELMA Rx#: [id number] Zosyn 3.375 gm In Dextrose 5% 50 50 in Water 50 ml @ 100 mls/hr IV Q8H [facility] Rx#:[id number] Oral 400 150 Output: Urine Catheter Amount 700 Stool 300 Other: Meal Lunch Percent of Meal Consumed 10 Feeding Ability Needs Supervision Urine Appearance Clear Huang Clear Urine Color Yellow Huang Light Jennifer Stool Size Smear Stool Color Brown Stool Consistency Watery # Voids 1 # Bowel Movements 2 # of times incontinent of 1 Bowels Head Head exam: Present atraumatic and normal inspection Eye Eye exam: Present normal appearance ENT ENT exam: Present mucous membranes moist, normal exam and normal external ear exam Neck Neck exam: Present normal inspection Respiratory Respiratory exam: Present normal respiratory exam Cardiovascular Cardiovascular exam: Present normal rate and rhythm GI/Abdominal GI/Abdominal exam: Present normal bowel sounds and tenderness Back Exam Back exam: Present normal inspection Neurological Exam Neurological exam: Present alert and oriented X3 Skin Skin exam: Present intact and warm OBJ DATA Labs CBC & Chem 7: 05/11/22 05:49 05/11/22 05:49 Labs: Abnormal Lab Results 05/11/22 05/11/22 05/10/22 05:49 05:49 18:48 WBC RBC 4.47 L Hgb 13.5 L RDW Plt Count 86 L Lymph % (Auto) 14.1 L Hart % (Auto) 13.6 H Lymph # (Auto) 1.42 L Hart # (Auto) 1.37 H POC Chloride Carbon Dioxide 20 L POC BUN BUN 37 H Creatinine 1.7 H POC Creatinine Calcium 8.0 L POC WB Ioniz Calcium Total Protein 5.5 L Urine Occult Blood Small A Urine RBC 11 H Hyaline Casts 11 H 05/10/22 05/10/22 15:19 15:19 WBC 11.1 H RBC Hgb RDW 14.6 H Plt Count 135 L Lymph % (Auto) Hart % (Auto) 13.6 H Lymph # (Auto) Hart # (Auto) 1.52 H POC Chloride 109 H Carbon Dioxide POC BUN 42 H BUN Creatinine POC Creatinine 2.4 H Calcium POC WB Ioniz Calcium 1.14 L Total Protein Urine Occult Blood Urine RBC Hyaline Casts Meds: Medications Acetaminophen (Acetaminophen 325 Mg Tablet) 650 mg PO Q6HP PRN; Protocol PRN Reason: Per Pain Protocol/Fever > 101 Last Admin: 05/11/22 12:42 Dose: 650 mg Albuterol/Ipratropium (Ipratropium/Albuterol 3 Ml Ampul.Neb) 3 ml NEB Q4HRT PRN PRN Reason: Wheezing Aspirin (Aspirin 81 Mg Tab.Chew) 81 mg PO DAILY [facility] Fluticasone Propionate (Fluticasone Propionate [place].Tomer) 2 spray NS QDAY [facility] Heparin Sodium (Porcine) (Heparin 5,000 Unit/Ml Vial) 5,000 unit SQ Q12 V[facility] Last Admin: 05/11/22 09:14 Dose: 5,000 unit Sodium Chloride (Sodium Chloride 0.9%) 1,000 mls @ 100 mls/hr IV .Q10H VEL[facility] Last Admin: 05/11/22 05:03 Dose: 100 mls/hr Piperacillin Sod/Tazobactam (Sod 3.375 gm/ Dextrose) 50 mls @ 100 mls/hr IV Q8H [facility]; Protocol Last Admin: 05/11/22 14:16 Dose: 100 mls/hr Iron Carb/Multivit/[place]/Folic Acid (Multivit,Ther Iron,Ca,Fa & Min 1 Tablet) 1 tab PO DAILY [facility] Levothyroxine Sodium (Levothyroxine 125 Mcg Tablet) 125 mcg PO QHS [facility] Lorazepam (Lorazepam 2 Mg/Ml Oral.[place]ayne) 1 mg PO QPM PRN PRN Reason: agitation,anxiety Melatonin (Melatonin 3 Mg Tablet) 3 mg PO HS [facility] Metoprolol Succinate (Metoprolol Succinate 25 Mg Tab.Xl.24h) 25 mg PO BID [facility] Olanzapine (Olanzapine 5 Mg Tablet) 5 mg PO BID [facility] Ondansetron HCl (Ondansetron 4 Mg/2 Ml Vial) 4 mg IV Q6HP PRN PRN Reason: Nausea And Vomiting Quetiapine Fumarate (Quetiapine 25 Mg Tablet) 50 mg PO HS [facility] Sertraline HCl (Sertraline 50 Mg Tablet) 50 mg PO QAM [facility] Sodium Chloride (0.9 % Sodium Chloride 10 Ml Syringe) 10 ml IV Q8 [facility] Last Admin: 05/11/22 14:16 Dose: Not Given Tamsulosin HCl (Tamsulosin 0.4 Mg Capsule) 0.4 mg PO QDAY [facility] Trazodone HCl (Trazodone Hcl 50 Mg Tablet) 25 mg PO HSP PRN PRN Reason: Insomnia Last Admin: 05/10/22 22:24 Dose: 25 mg A/P Assessment and plan (1) Dehydration: Status: Acute (2) Dementia: Status: Acute Qualifiers: Dementia behavioral disturbance: with behavioral disturbance Dementia type: unspecified type Qualified Code(s): F03.91 - Unspecified dementia with behavioral disturbance (3) Chronic kidney disease, stage 3 (moderate): Status: Chronic (4) CHF (congestive heart failure): Status: Chronic Qualifiers: Heart failure type: systolic Heart failure chronicity: chronic Qualified Code(s): I50.22 - Chronic systolic (congestive) heart failure (5) Benign essential hypertension: Status: Chronic (6) Hypothyroidism: Status: Chronic (7) Depression: Status: Chronic Qualifiers: Depression Type: major depressive disorder Major depression recurrence: recurrent Active/Remission status: currently active Major depression episode severity: moderate Qualified Code(s): F33.1 - Major depressive disorder, recurr ent, moderate (8) Anxiety: Status: Acute (9) Stage 2 acute kidney injury: Status: Acute (10) BPH w urinary obs/LUTS: Status: Chronic (11) Diarrhea: Status: Acute (12) Diverticulitis large intestine w/o perforation or abscess w/o bleeding: Status: Acute Narrative A/P Narrative: Assessment and Plans: 1. Acute kidney injury with chronic kidney disease III with associated clinical dehydration: Inpatient med surg s/p 1L IV fluid bolus given in the ED, to be followed by NS@100cc/hr Investigations of the cause of the dehydration from diarrhea include CT abdomen pelvis, and CT of colitis PCR Repeat CMP in the morning to trend kidney functions Avoid nephrotoxic agents and holding diuretics Bumex and Benazepril from home regimen 2. Acute onset diarrhea: Investigations of the cause of the dehydration from diarrhea include CT abdomen pelvis, and CT of colitis PCR IV fluid for fluid replacement, see above 3. Dementia: Memantine 4. Anxiety/Depression: Ativan PO PRN anxiety Quetiapine Sertraline 5. h/o BPH: Continue Flomax 6. Essential hypertension: Avoid nephrotoxic agents and holding diuretics Bumex and Benazepril from home regimen Continue Metoprolol ER 7. Hypothyroidism: Continue thyroid replacement therapy 8. Congestive heart failure: Avoid nephrotoxic agents and holding diuretics Bumex and Benazepril from home regimen Continue Metoprolol ER 9. Diverticulitis, mild, junction of descending colon/sigmoid colon: Continue Zosyn for now awaiting clinical improvement cbc w/ auto diff in the morning to trend WBC GI ppx: not currently indicated DVT ppx: Heparin Code status: Full Prognosis: guarded Disposition: Inpatient med surg Time Spent With Patient Time: Total time spent is greater than 50% in coordination of care (as documented) at patient's floor/unit and/or counseling patient: Total time spent with greater than 50% in coordination of care (as documented) at patient's floor/unit and/or counseling patient:: 25 - 35 minutes
[2022-05-11] MEDS: OLANZapine 5 MG TABLET PO SCH (20:10)
[2022-05-11] MEDS: QUEtiapine 25 MG TABLET PO SCH (20:10)
[2022-05-11] MEDS: MELATONIN 3 MG TABLET PO SCH (20:10)
[2022-05-11] MEDS: LEVOTHYROXINE 125 MCG TABLET PO SCH (20:10)
[2022-05-11] MEDS: METOPROLOL SUCCINATE 25 MG TAB.XL.24H PO SCH (20:10)
[2022-05-12] MEDS: ACETAMINOPHEN 325 MG TABLET PO PRN ×2 (02:07→20:07)
[2022-05-12] MEDS: PIPERACILLIN SODIUM/TAZOBACTAM 3.375 GM in DEXTROSE 5% IN WATER 50 ML IV SCH ×3 (05:08→21:48)
[2022-05-12] MEDS: 0.9 % SODIUM CHLORIDE 10 ML SYRINGE IV SCH ×3 (05:09→20:08)
[2022-05-12 07:31] LABS: ALT/SGPT 24 U/L (<40); AST/SGOT 26 U/L (<40); Albumin 2.7 gm/dL (3.2-5.2); Albumin/Globulin Ratio 1.1 (1.0-2.3); Alkaline Phosphatase 68 U/L (39-117); Bilirubin,Total 0.4 mg/dL (0.1-1.0); Blood Urea Nitrogen 23 mg/dL (8-23); Calcium 7.5 mg/dL (8.6-10.4); Carbon Dioxide 19 mmol/L (22-30); Chloride 110 mmol/L (96-108); Globulin 2.4 gm/dL (2.2-3.7); Glomerular Filtration Rate 44; Glucose 72 mg/dL (70-105)
[2022-05-12 08:22] LABS: Basophils # (Auto) 0.04 K/mcL (0.00-0.30); Basophils % (Auto) 0.6 % (0.0-2.0); Eosinophils # (Auto) 0.34 K/mcL (0.00-0.70); Eosinophils % (Auto) 4.9 % (0.0-7.0); Hematocrit 42.7 % (40.1-51.0); Hemoglobin 13.3 g/dL (13.7-17.5); Lymphocytes # (Auto) 1.46 K/mcL (1.50-4.80); Lymphocytes % (Auto) 20.8 % (15.5-49.0); Mean Cell Volume 96.2 fL (80.0-100.0); Mean Corpuscular HGB Conc 31.1 g/dL (31.0-36.0); Mean Platelet Volume 11.4 fL (8.8-12.5); Monocytes # (Auto) 1.11 K/mcL (0.10-0.90); Monocytes % (Auto) 15.8 % (1.0-12.0); Neutrophils % (Auto) 57.5 % (38.0-78.0); Platelet Count 156 K/mcL (140-440); RBC 4.44 M/mcL (4.63-6.08); Red Cell Distribution Width 13.9 % (11.5-14.5)
[2022-05-12] MEDS: OLANZapine 5 MG TABLET PO SCH ×2 (08:53→20:07)
[2022-05-12] MEDS: SERTRALINE 50 MG TABLET PO SCH (08:53)
[2022-05-12] MEDS: HEPARIN 5,000 UNIT/ML VIAL SQ SCH ×2 (08:54→20:07)
[2022-05-12] MEDS: TAMSULOSIN 0.4 MG CAPSULE PO SCH (08:54)
[2022-05-12] MEDS: ASPIRIN 81 MG TAB.CHEW PO SCH (08:54)
[2022-05-12] MEDS: MULTIVIT,THER IRON,CA,FA & MIN 1 TABLET PO SCH (08:54)
[2022-05-12] MEDS: FLUTICASONE PROPIONATE SPRAY.NAS NS SCH (08:55)
[2022-05-12] MEDS: METOPROLOL SUCCINATE 25 MG TAB.XL.24H PO SCH ×2 (08:55→20:07)
[2022-05-12] MEDS: 0.9 % SODIUM CHLORIDE 1,000 ML IV SCH ×3 (12:18→21:48)
--- NOTE | 2022-05-12 12:37 | Internal Med Progress Note ---
SUBJECTIVE Subjective Patient information: Note initiated : 05/12/22 at 12:31 pm Service Date, if different from initiated Date: [] Patient: Deyvi Walton a 89 y/o M admitted on 05/10/22 for diarrhea and tired- MIRELLA,Dehydration,Diarrhea. Chief Complaint: [] Interval history: Mr. Walton is a 89 year old M history of BPH, dementia, depression anxiety, hypertensions, hypothyroidism, congestive heart failure, presenting with 3-day history of diarrhea, altered mentation, decreased oral intake. He is a facility called [facility] resident. Over the past 3 days, he has been noted by his staff to have multiple episode of diarrhea, decreased oral intake, and altered mentation in terms of decreased alertness and weakness. He was starts being s ent to our ED for further evaluations. The following history is limited by the patient's clinical situations and his mentations. Vital signs at ED presentations within normal limits. Labs significant for mild leukocytosis with WBC 11.1. Lactic acid pending. Chemistry significant for serum creatinine level of 2.4 with a baseline 1.4. UA also pending. No imaging was done so far. Admission request was called for acute kidney injury in the context of chronic kidney disease and associated dehydration's. 05/11: CT of the abdomen and pelvis found evidence of descending colon/sigmoid colon d iverticulitis without any other complications. Afebrile overnight. C diff CPR negative. Patient does not have a great appetite. Patient currently denies any abdominal pain. He denies nausea vomiting or diarrhea at the moment. Continue IV fluid for acute kidney injury while monitoring daily kidney functions. Continue Zosyn for now awaiting clinical improvement. 05/12: Afebrile overnight. Kidney function back to the baseline. Patient does not have a great appetite, mostly only eating ice cream. Patient currently denies any abdominal pain. He denies nausea vomiting or diarrhea at the moment. Patient has reached clinical stability. The facility he came from, [facility], does not take patient's on a Friday, so we will plan to discharge patients back to the same facility tomorrow. Continue IV fluid and IV Zosyn for the moment, will switch to oral antibiotics such as Augmentin or ciprofloxacin and metronidazole at discharge. Constitutional Vitals: Vital Signs Temp Pulse Resp BP Pulse Ox O2 Del Method 36.6 C 56 L 16 142/66 94 05/12/22 12:00 05/12/22 12:00 05/12/22 12:00 05/12/22 12:00 05/12/22 12:00 05/12/22 12:00 Period Temp Pulse Resp BP Sys/[place] Pulse Ox O2 Del Method O2 Flow Rate Last 24 Hr 36.2 C-36.8 C 40-90 14-18 130-142/58-100 94-98 Room Air-Room Air Intake and Output 05/12/22 05/12/22 05/12/22 03:59 11:59 19:59 Intake Total 1050 686 Output Total 400 Balance 1050 286 Intake & Output: Intake & Output 05/12/22 05/12/22 05/12/22 03:59 11:59 19:59 Intake Total 1050 686 Output Total 400 Balance 1050 286 Intake: Nourishment/Supplement quantity 118 (ml) IV 1050 50 Sodium Chloride 0.9% 1,000 ml @ 1000 100 mls/hr IV .Q10H [facility] Rx#: [id number] Zosyn 3.375 gm In Dextrose 5% 50 50 in Water 50 ml @ 100 mls/hr IV Q8H [facility] Rx#:[id number] Oral 518 Output: Urine Catheter Amount 400 Other: Meal Breakfast Percent of Meal Consumed 25% Feeding Ability Needs Supervision Nourishment/Supplement name magic cup Urine Appearance Clear Huang Clear Clear Urine Color Dark Yellow Blood Tinged Huang Dark Yellow Dark Yellow Head Head exam: Present atraumatic and normal inspection Eye Eye exam: Present normal appearance ENT ENT exam: Present mucous membranes moist, normal exam and normal external ear exam Neck Neck exam: Present normal inspection Respiratory Respiratory exam: Present normal respiratory exam Cardiovascular Cardiovascular exam: Present normal rate and rhythm GI/Abdominal GI/Abdominal exam: Present normal bowel sounds Additional comments: Huang catheter in place Back Exam Back exam: Present normal inspection Neurological Exam Neurological exam: Present alert and altered Skin Skin exam: Present intact and warm OBJ DATA Labs CBC & Chem 7: 05/12/22 05:08 05/12/22 05:08 Labs: Abnormal Lab Results 05/12/22 05/12/22 05/11/22 05:08 05:08 05:49 WBC RBC 4.44 L Hgb 13.3 L RDW Plt Count Lymph % (Auto) [place] % (Auto) 15.8 H Lymph # (Auto) 1.46 L [place] # (Auto) 1.11 H POC Chloride Chloride 110 H Carbon Dioxide 19 L 20 L POC BUN BUN 37 H Creatinine 1.4 H 1.7 H POC Creatinine Calcium 7.5 L 8.0 L POC WB Ioniz Calcium Total Protein 5.1 L 5.5 L Albumin 2.7 L Urine Occult Blood Urine RBC Hyaline Casts 05/11/22 05/10/22 05/10/22 05:49 18:48 15:19 WBC 11.1 H RBC 4.47 L Hgb 13.5 L RDW 14.6 H Plt Count 86 L 135 L Lymph % (Auto) 14.1 L [place] % (Auto) 13.6 H 13.6 H Lymph # (Auto) 1.42 L [place] # (Auto) 1.37 H 1.52 H POC Chloride Chloride Carbon Dioxide POC BUN BUN Creatinine POC Creatinine Calcium POC WB Ioniz Calcium Total Protein Albumin Urine Occult Blood Small A Urine RBC 11 H Hyaline Casts 11 H 05/10/22 15:19 WBC RBC Hgb RDW Plt Count Lymph % (Auto) [place] % (Auto) Lymph # (Auto) [place] # (Auto) POC Chloride 109 H Chloride Carbon Dioxide POC BUN 42 H BUN Creatinine POC Creatinine 2.4 H Calcium POC WB Ioniz Calcium 1.14 L Total Protein Albumin Urine Occult Blood Urine RBC Hyaline Casts Meds: Medications Acetaminophen (Acetaminophen 325 Mg Tablet) 650 mg PO Q6HP PRN; Protocol PRN Reason: Per Pain Protocol/Fever > 101 Last Admin: 05/12/22 02:07 Dose: 650 mg Albuterol/Ipratropium (Ipratropium/Albuterol 3 Ml Ampul.Neb) 3 ml NEB Q4HRT PRN PRN Reason: Wheezing Aspirin (Aspirin 81 Mg Tab.Chew) 81 mg PO DAILY [facility] Last Admin: 05/12/22 08:54 Dose: 81 mg Fluticasone Propionate (Fluticasone Propionate [place].Tomer) 2 spray NS QDAY [facility] Last Admin: 05/12/22 08:55 Dose: Not Given Heparin Sodium (Porcine) (Heparin 5,000 Unit/Ml Vial) 5,000 unit SQ Q12 [facility] Last Admin: 05/12/22 08:54 Dose: 5,000 unit Sodium Chloride (Sodium Chloride 0.9%) 1,000 mls @ 100 mls/hr IV .Q10H [facility] Last Admin: 05/12/22 12:18 Dose: 100 mls/hr Piperacillin Sod/Tazobactam (Sod 3.375 gm/ Dextrose) 50 mls @ 100 mls/hr IV Q8H [facility]; Protocol Last Infusion: 05/12/22 06:26 Dose: Infused Iron Carb/Multivit/[place]/Folic Acid (Multivit,Ther Iron,Ca,Fa & Min 1 Tablet) 1 tab PO DAILY [facility] Last Admin: 05/12/22 08:54 Dose: 1 tab Levothyroxine Sodium (Levothyroxine 125 Mcg Tablet) 125 mcg PO QHS [facility] Last Admin: 05/11/22 20:10 Dose: 125 mcg Lorazepam (Lorazepam 2 Mg/Ml Oral.Layne) 1 mg PO QPM PRN PRN Reason: agitation,anxiety Melatonin (Melatonin 3 Mg Tablet) 3 mg PO HS [facility] Last Admin: 05/11/22 20:10 Dose: 3 mg Metoprolol Succinate (Metoprolol Succinate 25 Mg Tab.Xl.24h) 25 mg PO BID [facility] Last Admin: 05/12/22 08:55 Dose: 25 mg Olanzapine (Olanzapine 5 Mg Tablet) 5 mg PO BID [facility] Last Admin: 05/12/22 08:53 Dose: 5 mg Ondansetron HCl (Ondansetron 4 Mg/2 Ml Vial) 4 mg IV Q6HP PRN PRN Reason: Nausea And Vomiting Quetiapine Fumarate (Quetiapine 25 Mg Tablet) 50 mg PO HS [facility] Last Admin: 05/11/22 20:10 Dose: 50 mg Sertraline HCl (Sertraline 50 Mg Tablet) 50 mg PO QAM [facility] Last Admin: 05/12/22 08:53 Dose: 50 mg Sodium Chloride (0.9 % Sodium Chloride 10 Ml Syringe) 10 ml IV Q8 [facility] Last Admin: 05/12/22 05:09 Dose: Not Given Tamsulosin HCl (Tamsulosin 0.4 Mg Capsule) 0.4 mg PO QDAY [facility] Last Admin: 05/12/22 08:54 Dose: 0.4 mg Trazodone HCl (Trazodone Hcl 50 Mg Tablet) 25 mg PO HSP PRN PRN Reason: Insomnia Last Admin: 05/10/22 22:24 Dose: 25 mg A/P Assessment and plan (1) Dehydration: Status: Acute (2) Dementia: Status: Acute Qualifiers: Dementia behavioral disturbance: with behavioral disturbance Dementia type: unspecified type Qualified Code(s): F03.91 - Unspecified dementia with behavioral disturbance (3) Chronic kidney disease, stage 3 (moderate): Status: Chronic (4) CHF (congestive heart failure): Status: Chronic Qualifiers: Heart failure type: systolic Heart failure chronicity: chronic Balaji lified Code(s): I50.22 - Chronic systolic (congestive) heart failure (5) Benign essential hypertension: Status: Chronic (6) Hypothyroidism: Status: Chronic (7) Depression: Status: Chronic Qualifiers: Depression Type: major depressive disorder Major depression recurrence: recurrent Active/Remission status: currently active Major depression episode severity: moderate Qualified Code(s): F33.1 - Major depressive disorder, recurrent, moderate (8) Anxiety: Status: Acute (9) Stage 2 acute kidney injury: Status: Acute (10) BPH w urinary obs/LUTS: Status: Chronic (11) Diarrhea: Status: Acute (12) Diverticulitis large intestine w/o perforation or abscess w/o bleeding: Status: Acute Narrative A/P Narrative: Assessment and Plans: 1. Acute kidney injury with chronic kidney disease III with associated clinical dehydration: Inpatient med surg kidney functions back to the baseline s/p 1L IV fluid bolus given in the ED, to be followed by NS@100cc/hr Repeat CMP in the morning to trend kidney functions Avoid nephrotoxic agents and holding diuretics Bumex and Benazepril from home regimen 2. Acute onset diarrhea: Investigations of the cause of the dehydration from diarrhea include CT abdomen pelvis, and CT of colitis PCR IV fluid for fluid replacement, see above 3. Dementia: Memantine 4. Anxiety/Depression: Ativan PO PRN anxiety Quetiapine Sertraline 5. h/o BPH: Continue Flomax 6. Essential hypertension: Avoid nephrotoxic agents and holding diuretics Bumex and Benazepril from home regimen Continue Metoprolol ER 7. Hypothyroidism: Continue thyroid replacement therapy 8. Congestive heart failure: Avoid nephrotoxic agents and holding diuretics Bumex and Benazepril from home regimen Continue Metoprolol ER 9. Diverticulitis, mild, junction of descending colon/sigmoid colon: Continue Zosyn for now, will switch to oral antibiotics such as Augmentin or ciprofloxacin plus metronidazole at time of discharge. cbc w/ auto diff in the morning to trend WBC GI ppx: not currently indicated DVT ppx: Heparin Code status: DNR Prognosis: Stable Disposition: Inpatient med surg; d/c back to [facility] on Friday05/13/22 Time Spent With Patient Time: Total time spent is greater than 50% in coordination of care (as documented) at patient's floor/unit and/or counseling patient: Total time spent with greater than 50% in coordination of care (as documented) at patient's floor/unit and/or counseling patient:: 25 - 35 minutes
[2022-05-12] MEDS: QUEtiapine 25 MG TABLET PO SCH (20:07)
[2022-05-12] MEDS: LEVOTHYROXINE 125 MCG TABLET PO SCH (20:07)
[2022-05-12] MEDS: MELATONIN 3 MG TABLET PO SCH (20:07)
[2022-05-12] MEDS: traZODone HCL 50 MG TABLET PO PRN (20:08)
[2022-05-13] MEDS: ACETAMINOPHEN 325 MG TABLET PO PRN ×2 (02:41→16:38)
[2022-05-13] MEDS: PIPERACILLIN SODIUM/TAZOBACTAM 3.375 GM in DEXTROSE 5% IN WATER 50 ML IV SCH ×3 (05:31→22:05)
[2022-05-13] MEDS: 0.9 % SODIUM CHLORIDE 10 ML SYRINGE IV SCH ×3 (05:38→22:06)
[2022-05-13 07:19] LABS: Basophils # (Auto) 0.04 K/mcL (0.00-0.30); Basophils % (Auto) 0.6 % (0.0-2.0); Eosinophils # (Auto) 0.38 K/mcL (0.00-0.70); Eosinophils % (Auto) 5.5 % (0.0-7.0); Hematocrit 48.1 % (40.1-51.0); Hemoglobin 14.6 g/dL (13.7-17.5); Lymphocytes # (Auto) 1.72 K/mcL (1.50-4.80); Lymphocytes % (Auto) 24.8 % (15.5-49.0); Mean Cell Volume 99.8 fL (80.0-100.0); Mean Corpuscular HGB Conc 30.4 g/dL (31.0-36.0); Mean Platelet Volume 10.8 fL (8.8-12.5); Monocytes # (Auto) 0.75 K/mcL (0.10-0.90); Monocytes % (Auto) 10.8 % (1.0-12.0); Neutrophils % (Auto) 57.9 % (38.0-78.0); Platelet Count 180 K/mcL (140-440); RBC 4.82 M/mcL (4.63-6.08); Red Cell Distribution Width 13.8 % (11.5-14.5); WBC 6.9 K/mcL (4.5-11.0)
[2022-05-13] MEDS: 0.9 % SODIUM CHLORIDE 1,000 ML IV SCH ×4 (07:25→18:42)
[2022-05-13 08:03] LABS: ALT/SGPT 22 U/L (<40); AST/SGOT 21 U/L (<40); Albumin 3.2 gm/dL (3.2-5.2); Albumin/Globulin Ratio 1.2 (1.0-2.3); Alkaline Phosphatase 70 U/L (39-117); Bilirubin,Total 0.4 mg/dL (0.1-1.0); Blood Urea Nitrogen 13 mg/dL (8-23); Calcium 7.6 mg/dL (8.6-10.4); Carbon Dioxide 16 mmol/L (22-30); Chloride 109 mmol/L (96-108); Globulin 2.6 gm/dL (2.2-3.7); Glomerular Filtration Rate 53; Glucose 95 mg/dL (70-105)
[2022-05-13] MEDS: HEPARIN 5,000 UNIT/ML VIAL SQ SCH (08:55)
[2022-05-13] MEDS: TAMSULOSIN 0.4 MG CAPSULE PO SCH (12:25)
[2022-05-13] MEDS: ASPIRIN 81 MG TAB.CHEW PO SCH (12:25)
[2022-05-13] MEDS: FLUTICASONE PROPIONATE SPRAY.NAS NS SCH (12:25)
[2022-05-13] MEDS: MULTIVIT,THER IRON,CA,FA & MIN 1 TABLET PO SCH (12:26)
[2022-05-13] MEDS: METOPROLOL SUCCINATE 25 MG TAB.XL.24H PO SCH ×2 (12:26→20:07)
[2022-05-13] MEDS: OLANZapine 5 MG TABLET PO SCH ×2 (12:26→20:07)
[2022-05-13] MEDS: SERTRALINE 50 MG TABLET PO SCH (12:26)
--- NOTE | 2022-05-13 12:42 | Internal Med Progress Note ---
SUBJECTIVE Subjective Patient information: Note initiated : 05/13/22 at 12:39 pm Service Date, if different from initiated Date: [] Patient: Deyvi Walton a 89 y/o M admitted on 05/10/22 for diarrhea and tired- MIRELLA,Dehydration,Diarrhea. Chief Complaint: [] Interval history: Mr. Walton is a 89 year old M history of BPH, dementia, depression anxiety, hypertensions, hypothyroidism, congestive heart failure, presenting with 3-day history of diarrhea, altered mentation, decreased oral intake. He is a facility called [facility] resident. Over the past 3 days, he has been noted by his staff to have multiple episode of diarrhea, decreased oral intake, and altered mentation in terms of decreased alertness and weakness. He was starts being s ent to our ED for further evaluations. The following history is limited by the patient's clinical situations and his mentations. Vital signs at ED presentations within normal limits. Labs significant for mild leukocytosis with WBC 11.1. Lactic acid pending. Chemistry significant for serum creatinine level of 2.4 with a baseline 1.4. UA also pending. No imaging was done so far. Admission request was called for acute kidney injury in the context of chronic kidney disease and associated dehydration's. 05/11: CT of the abdomen and pelvis found evidence of descending colon/sigmoid colon d iverticulitis without any other complications. Afebrile overnight. C diff CPR negative. Patient does not have a great appetite. Patient currently denies any abdominal pain. He denies nausea vomiting or diarrhea at the moment. Continue IV fluid for acute kidney injury while monitoring daily kidney functions. Continue Zosyn for now awaiting clinical improvement. 05/12: Afebrile overnight. Kidney function back to the baseline. Patient does not have a great appetite, mostly only eating ice cream. Patient currently denies any abdominal pain. He denies nausea vomiting or diarrhea at the moment. Patient has reached clinical stability. The facility he came from, [facility], does not take patient's on a Friday, so we will plan to discharge patients back to the same facility tomorrow. Continue IV fluid and IV Zosyn for the moment, will switch to oral antibiotics such as Augmentin or ciprofloxacin and metronidazole at discharge. 05/13: Patient was up all night yesterday and was somewhat agitated so one-on-one, otherwise there was no other major overnight events. Patient is currently calm and sleeping. Due to paperwork and transportation issues, patient's need to stay 1 more night and to be discharged to a memory care center tomorrow. We will continue IV fluid and IV Zosyn for the moment, will switch to oral antibiotics such as Augmentin or ciprofloxacin and metronidazole at discharge. Constitutional Vitals: Vital Signs Temp Pulse Resp BP Pulse Ox O2 Del Method 36.9 C 65 14 126/80 97 05/13/22 12:00 05/13/22 12:00 05/13/22 12:00 05/13/22 12:00 05/13/22 12:00 05/13/22 12:00 Period Temp Pulse Resp BP Sys/[place]nor Pulse Ox O2 Del Method O2 Flow Rate Last 24 Hr 36.2 C-36.9 C 55-65 126-150/69-98 94-99 Room Air-Room Air Intake and Output 05/13/22 05/13/22 05/13/22 03:59 11:59 19:59 Intake Total 290 1000 Output Total 650 Balance -360 1000 Weight 66.224 kg Intake & Output: Intake & Output 05/13/22 05/13/22 05/13/22 03:59 11:59 19:59 Intake Total 290 1000 Output Total 650 Balance -360 1000 Weight 66.224 kg Intake: IV 50 1000 Sodium Chloride 0.9% 1,000 ml @ 950 100 mls/hr IV .Q10H [facility] Rx#: [id number] Zosyn 3.375 gm In Dextrose 5% 50 50 in Water 50 ml @ 100 mls/hr IV Q8H [facility] Rx#:[id number] Oral 240 Output: Urine Catheter Amount 650 Other: Meal ice cream Percent of Meal Consumed 100% Feeding Ability Assist with Tray Set Up Urine Appearance Clear Huang Clear Urine Color Dark Jennifer Huang Dark Yellow Urine Odor Normal Stool Size Large Stool Color Brown Stool Consistency Soft Formed Head Head exam: Present atraumatic and normal inspection Eye Eye exam: Present normal appearance ENT ENT exam: Present mucous membranes moist, normal exam and normal external ear exam Neck Neck exam: Present normal inspection Respiratory Respiratory exam: Present normal respiratory exam Cardiovascular Cardiovascular exam: Present normal rate and rhythm GI/Abdominal GI/Abdominal exam: Present normal bowel sounds Back Exam Back exam: Present normal inspection Neurological Exam Neurological exam: Absent alert or oriented X3 Additional comments: sleeping Skin Skin exam: Present intact and warm OBJ DATA Labs CBC & Chem 7: 05/13/22 06:23 05/13/22 06:23 Labs: Abnormal Lab Results 05/13/22 05/13/22 05/12/22 06:23 06:23 05:08 WBC RBC Hgb MCHC 30.4 L RDW Plt Count Lymph % (Auto) [place] % (Auto) Lymph # (Auto) [place] # (Auto) POC Chloride Chloride 109 H 110 H Carbon Dioxide 16 L 19 L POC BUN BUN Creatinine 1.4 H POC Creatinine Calcium 7.6 L 7.5 L POC WB Ioniz Calcium Total Protein 5.8 L 5.1 L Albumin 2.7 L Urine Occult Blood Urine RBC Hyaline Casts 05/12/22 05/11/22 05/11/22 05:08 05:49 05:49 WBC RBC 4.44 L 4.47 L Hgb 13.3 L 13.5 L MCHC RDW Plt Count 86 L Lymph % (Auto) 14.1 L [place] % (Auto) 15.8 H 13.6 H Lymph # (Auto) 1.46 L 1.42 L [place] # (Auto) 1.11 H 1.37 H POC Chloride Chloride Carbon Dioxide 20 L POC BUN BUN 37 H Creatinine 1.7 H POC Creatinine Calcium 8.0 L POC WB Ioniz Calcium Total Protein 5.5 L Albumin Urine Occult Blood Urine RBC Hyaline Casts 05/10/22 05/10/22 05/10/22 18:48 15:19 15:19 WBC 11.1 H RBC Hgb MCHC RDW 14.6 H Plt Count 135 L Lymph % (Auto) [place] % (Auto) 13.6 H Lymph # (Auto) [place] # (Auto) 1.52 H POC Chloride 109 H Chloride Carbon Dioxide POC BUN 42 H BUN Creatinine POC Creatinine 2.4 H Calcium POC WB Ioniz Calcium 1.14 L Total Protein Albumin Urine Occult Blood Small A Urine RBC 11 H Hyaline Casts 11 H Meds: Medications Acetaminophen (Acetaminophen 325 Mg Tablet) 650 mg PO Q6HP PRN; Protocol PRN Reason: Per Pain Protocol/Fever > 101 Last Admin: 05/13/22 02:41 Dose: 650 mg Albuterol/Ipratropium (Ipratropium/Albuterol 3 Ml Ampul.Neb) 3 ml NEB Q4HRT PRN PRN Reason: Wheezing Aspirin (Aspirin 81 Mg Tab.Chew) 81 mg PO DAILY [facility] Last Admin: 05/13/22 12:25 Dose: Not Given Fluticasone Propionate (Fluticasone Propionate [place].Tomer) 2 spray NS QDAY [facility] Last Admin: 05/13/22 12:25 Dose: Not Given Heparin Sodium (Porcine) (Heparin 5,000 Unit/Ml Vial) 5,000 unit SQ Q12 [facility] Last Admin: 05/13/22 08:55 Dose: 5,000 unit Sodium Chloride (Sodium Chloride 0.9%) 1,000 mls @ 100 mls/hr IV .Q10H [facility] Last Admin: 05/13/22 08:20 Dose: 100 mls/hr Piperacillin Sod/Tazobactam (Sod 3.375 gm/ Dextrose) 50 mls @ 100 mls/hr IV Q8H [facility]; Protocol Last Infusion: 05/13/22 07:25 Dose: Infused Iron Carb/Multivit/[place]/Folic Acid (Multivit,Ther Iron,Ca,Fa & Min 1 Tablet) 1 tab PO DAILY [facility] Last Admin: 05/13/22 12:26 Dose: Not Given Levothyroxine Sodium (Levothyroxine 125 Mcg Tablet) 125 mcg PO QHS [facility] Last Admin: 05/12/22 20:07 Dose: 125 mcg Lorazepam (Lorazepam 2 Mg/Ml Oral.Layne) 1 mg PO QPM PRN PRN Reason: agitation,anxiety Last Admin: 05/12/22 23:59 Dose: 1 mg Melatonin (Melatonin 3 Mg Tablet) 3 mg PO HS [facility] Last Admin: 05/12/22 20:07 Dose: 3 mg Metoprolol Succinate (Metoprolol Succinate 25 Mg Tab.Xl.24h) 25 mg PO BID [facility] Last Admin: 05/13/22 12:26 Dose: Not Given Olanzapine (Olanzapine 5 Mg Tablet) 5 mg PO BID [facility] Last Admin: 05/13/22 12:26 Dose: Not Given Ondansetron HCl (Ondansetron 4 Mg/2 Ml Vial) 4 mg IV Q6HP PRN PRN Reason: Nausea And Vomiting Quetiapine Fumarate (Quetiapine 25 Mg Tablet) 50 mg PO HS [facility] Last Admin: 05/12/22 20:07 Dose: 50 mg Sertraline HCl (Sertraline 50 Mg Tablet) 50 mg PO QAM [facility] Last Admin: 11/28/22 12:26 Dose: Not Given Sodium Chloride (0.9 % Sodium Chloride 10 Ml Syringe) 10 ml IV Q8 [facility] Last Admin: 05/13/22 05:38 Dose: Not Given Tamsulosin HCl (Tamsulosin 0.4 Mg Capsule) 0.4 mg PO QDAY [facility] Last Admin: 05/13/22 12:25 Dose: Not Given Trazodone HCl (Trazodone Hcl 50 Mg Tablet) 25 mg PO HSP PRN PRN Reason: Insomnia Last Admin: 05/12/22 20:08 Dose: 25 mg A/P Assessment and plan (1) Dehydration: Status: Acute (2) Dementia: Status: Acute Qualifiers: Dementia behavioral disturbance: with behavioral disturbance Dementia type: unspecified type Qualified Code(s): F03.91 - Unspecified dementia with behavioral disturbance (3) Chronic kidney disease, stage 3 (moderate): Status: Chronic (4) CHF (congestive heart failure): Status: Chronic Qualifiers: Heart failure type: systolic Heart failure chronicity: chronic Qualified Code(s): I50.22 - Chronic systolic (congestive) heart failure (5) Benign essential hypertension: Status: Chronic (6) Hypothyroidism: Status: Chronic (7) Depression: Status: Chronic Qualifiers: Depression Type: major depressive disorder Major depression recurrence: recurrent Active/Remission status: currently active Major depression episode severity: moderate Qualified Code(s): F33.1 - Major depressive disorder, recurrent, moderate (8) Anxiety: Status: Acute (9) Stage 2 acute kidney injury: Status: Acute (10) BPH w urinary obs/LUTS: Status: Chronic (11) Diarrhea: Status: Acute (12) Diverticulitis large intestine w/o perforation or abscess w/o bleeding: Status: Acute Narrative A/P Narrative: Assessment and Plans: 1. Acute kidney injury with chronic kidney disease III with associated clinical dehydration: Inpatient med surg kidney functions back to the baseline s/p 1L IV fluid bolus given in the ED, to be followed by NS@100cc/hr Repeat CMP in the morning to trend kidney functions Avoid nephrotoxic agents and holding diuretics Bumex and Benazepril from home regimen 2. Acute onset diarrhea: Investigations of the cause of the dehydration from diarrhea include CT abdomen pelvis, and CT of colitis PCR IV fluid for fluid replacement, see above 3. Dementia: Memantine 4. Anxiety/Depression: Ativan PO PRN anxiety Quetiapine Sertraline 5. h/o BPH: Continue Flomax 6. Essential hypertension: Avoid nephrotoxic agents and holding diuretics Bumex and Benazepril from home regimen Continue Metoprolol ER 7. Hypothyroidism: Continue thyroid replacement therapy 8. Congestive heart failure: Avoid nephrotoxic agents and holding diuretics Bumex and Benazepril from home regimen Continue Metoprolol ER 9. Diverticulitis, mild, junction of descending colon/sigmoid colon: Continue Zosyn for now, will switch to oral antibiotics such as Augmentin or ciprofloxacin plus metronidazole at time of discharge. cbc w/ auto diff in the morning to trend WBC GI ppx: not currently indicated DVT ppx: Lovenox Code status: DNR Prognosis: Stable Disposition: Inpatient med surg; d/c memory care center on Friday05/14/22 Time Spent With Patient Time: Total time spent is greater than 50% in coordination of care (as documented) at patient's floor/unit and/or counseling patient: Total time spent with greater than 50% in coordination of care (as documented) at patient's floor/unit and/or counseling patient:: 25 - 35 minutes
[2022-05-13] MEDS: MELATONIN 3 MG TABLET PO SCH (20:07)
[2022-05-13] MEDS: traZODone HCL 50 MG TABLET PO PRN (20:07)
[2022-05-13] MEDS: QUEtiapine 25 MG TABLET PO SCH (20:07)
[2022-05-13] MEDS: LEVOTHYROXINE 125 MCG TABLET PO SCH (20:07)
[2022-05-14] MEDS: 0.9 % SODIUM CHLORIDE 1,000 ML IV SCH (05:05)
[2022-05-14] MEDS: PIPERACILLIN SODIUM/TAZOBACTAM 3.375 GM in DEXTROSE 5% IN WATER 50 ML IV SCH (05:35)
[2022-05-14] MEDS: 0.9 % SODIUM CHLORIDE 10 ML SYRINGE IV SCH (05:35)
[2022-05-14 07:28] LABS: Basophils # (Auto) 0.05 K/mcL (0.00-0.30); Basophils % (Auto) 0.8 % (0.0-2.0); Eosinophils # (Auto) 0.42 K/mcL (0.00-0.70); Eosinophils % (Auto) 6.8 % (0.0-7.0); Hematocrit 39.6 % (40.1-51.0); Hemoglobin 13.2 g/dL (13.7-17.5); Lymphocytes # (Auto) 1.65 K/mcL (1.50-4.80); Lymphocytes % (Auto) 26.8 % (15.5-49.0); Mean Cell Volume 91.7 fL (80.0-100.0); Mean Corpuscular HGB Conc 33.3 g/dL (31.0-36.0); Mean Platelet Volume 10.5 fL (8.8-12.5); Monocytes # (Auto) 0.64 K/mcL (0.10-0.90); Monocytes % (Auto) 10.4 % (1.0-12.0); Neutrophils % (Auto) 54.7 % (38.0-78.0); Platelet Count 179 K/mcL (140-440); RBC 4.32 M/mcL (4.63-6.08); Red Cell Distribution Width 13.9 % (11.5-14.5); WBC 6.2 K/mcL (4.5-11.0)
[2022-05-14 08:11] LABS: ALT/SGPT 19 U/L (<40); AST/SGOT 20 U/L (<40); Albumin 2.9 gm/dL (3.2-5.2); Albumin/Globulin Ratio 1.6 (1.0-2.3); Alkaline Phosphatase 64 U/L (39-117); Bilirubin,Total 0.3 mg/dL (0.1-1.0); Blood Urea Nitrogen 10 mg/dL (8-23); Calcium 7.6 mg/dL (8.6-10.4); Carbon Dioxide 19 mmol/L (22-30); Chloride 112 mmol/L (96-108); Globulin 1.8 gm/dL (2.2-3.7); Glomerular Filtration Rate 59; Glucose 87 mg/dL (70-105)
[2022-05-14] MEDS: OLANZapine 5 MG TABLET PO SCH (08:28)
[2022-05-14] MEDS: ASPIRIN 81 MG TAB.CHEW PO SCH (08:28)
[2022-05-14] MEDS: MULTIVIT,THER IRON,CA,FA & MIN 1 TABLET PO SCH (08:29)
[2022-05-14] MEDS: TAMSULOSIN 0.4 MG CAPSULE PO SCH (08:29)
[2022-05-14] MEDS: METOPROLOL SUCCINATE 25 MG TAB.XL.24H PO SCH (08:29)
[2022-05-14] MEDS: FLUTICASONE PROPIONATE SPRAY.NAS NS SCH (08:29)
[2022-05-14] MEDS: SERTRALINE 50 MG TABLET PO SCH (08:29)
[2022-05-14] MEDS ORDERED: ENOXAPARIN 40 MG/0.4 ML SYRINGE SQ SCH (09:00)
--- NOTE | 2022-05-14 10:03 | Discharge Summary ---
Discharge Provider Provider IMPORTANT FOLLOW-UP INFORMATION FOR PCP: Patient information: Note initiated : 05/14/22 at 10:00 am Service Date, if different from initiated Date: [] Patient: Deyvi Walton 89 y/o M admitted on 05/10/22 for diarrhea and tired-MIRELLA,Dehydration,Diarrhea. Chief Complaint: [] Date of admission: 05/10/22 19:40 Discharge date: 05/14/22 Primary care physician: Yrn Seth DO Attending physician on admission: Ihsan Mcintyre Consults: 05/10/22 Consult to Physician [CONS] Stat Comment: Consulting Provider: Ihsan Mcintyre Reason For Exam: Physician to Consult Attending physician on discharge: Ihsan Mcintyre COURSE Hospital Course Hospital course: Mr. Walton is a 89 year old M history of BPH, dementia, depression anxiety, hypertensions, hypothyroidism, congestive heart failure, presenting with 3-day history of diarrhea, altered mentation, decreased oral intake. He is a facility called [facility] resident. Over the past 3 days, he has been noted by his staff to have multiple episode of diarrhea, decreased oral intake, and altered mentation in terms of decreased alertness and weakness. He was starts being sent to our ED for further evaluations. The following history is limited by the patient's clinical situations and his mentations. Vital signs at ED presentations within normal limits. Labs significant for mild leukocytosis with WBC 11.1. Lactic acid pending. Chemistry significant for serum creatinine level of 2.4 with a baseline 1.4. UA also pending. No imaging was done so fa r. Admission request was called for acute kidney injury in the context of chronic kidney disease and associated dehydration's. 05/11: CT of the abdomen and pelvis found evidence of descending colon/sigmoid colon diverticulitis without any other complications. Afebrile overnight. C diff CPR negative. Patient does not have a great appetite. Patient currently denies any abdominal pain. He denies nausea vomiting or diarrhea at the moment. Continue IV fluid for acute kidney injury while monitoring daily kidney functions. Continue Zosyn for now awaiting clinical improvement. 05/12: Afebrile overnight. Kidney function back to the baseline. Patient does not have a great appetite, mostly only eating ice cream. Patient currently denies any abdominal pain. He denies nausea vomiting or diarrhea at the moment. Patient has reached clinical stability. The facility he came from, [facility], does not take patient's on a Friday, so we will plan to discharge patients back to the same facility tomorrow. Continue IV fluid and IV Zosyn for the moment, will switch to oral antibiotics such as Augmentin or ciprofloxacin and metronidazole at discharge. 05/13: Patient was up all night yesterday and was somewhat agitated so one-on-one, otherwise there was no other major overnight events. Patient is currently calm and sleeping. Due to paperwork and transportation issues, patient's need to stay 1 more night and to be discharged to a memory care center tomorrow. We will continue IV fluid and IV Zosyn for the moment, will switch to oral antibiotics such as Augmentin or ciprofloxacin and metronidazole at discharge. 05/14: Discharged to adult family home. Discharge diagnosis: Descending/sigmoid diverticulitis, acute kidney injury, dehydration. Time Spent with Patient Time attestation: Total time spent providing and/or coordinating discharge services: Time spent: Greater than 30 minutes EXAM Constitutional Vitals: Temp Pulse Resp BP Pulse Ox O2 Del Method 36.3 C 73 16 157/97 93 05/14/22 07:37 05/14/22 07:37 05/14/22 07:37 05/14/22 07:37 05/14/22 07:37 05/14/22 07:37 General appearance: cooperative and no acute distress Head Head exam: Present atraumatic and normocephalic Eye Eye exam: Present EOMI and PERRL ENT ENT exam: Present mucous membranes moist, normal exam and normal external ear exam Neck Neck exam: Present normal inspection; Absent lymphadenopathy, tenderness or thyromegaly Respiratory Respiratory exam: Absent accessory muscle use, respiratory distress or wheezes Cardiovascular Cardiovascular exam: Present normal rate and rhythm; Absent JVD GI/Abdominal GI/Abdominal exam: Present normal bowel sounds and soft; Absent organomegaly or tenderness Rectal Rectal exam: Present deferred Extremities Exam Extremities exam: Present full ROM, normal capillary refill and normal inspection; Absent tenderness Neurological Exam Neurological exam: Present alert, altered and CN II-XII intact; Absent motor sensory deficit or oriented X3 Psychiatric Psychiatric exam: Present normal affect and normal mood; Absent anxious or depressed Skin Skin exam: Present dry and intact Discharge Data Data Completed and Pending Labs on day of discharge: Labs from last 24 hours 05/14/22 05/14/22 06:24 06:24 WBC 6.2 RBC 4.32 L Hgb 13.2 L Hct 39.6 L MCV 91.7 MCH 30.6 MCHC 33.3 RDW 13.9 Plt Count 179 MPV 10.5 Immature Gran % (Auto) 0.5 Neut % (Auto) 54.7 Lymph % (Auto) 26.8 [place] % (Auto) 10.4 Eos % (Auto) 6.8 Baso % (Auto) 0.8 Lymph # (Auto) 1.65 [place] # (Auto) 0.64 Eos # (Auto) 0.42 Baso # (Auto) 0.05 Immature Gran # 0.03 Absolute Neutrophils 3.36 Sodium 141 Potassium 3.8 Chloride 112 H Carbon Dioxide 19 L Anion Gap 10.0 BUN 10 Creatinine 1.1 GFR Calculation 59 Glucose 87 Calcium 7.6 L Total Bilirubin 0.3 AST 20 ALT 19 Alkaline Phosphatase 64 Total Protein 4.7 L Albumin 2.9 L Globulin 1.8 L Albumin/Globulin Ratio 1.6 Discharge Plan Patient/Caregiver Discharge Instructions Activity: increase activity as tolerated Diet: Regular Diet Prescriptions: New ciprofloxacin HCl 500 mg tablet 500 mg PO BID Qty: 10 0RF metronidazole 500 mg tablet 500 mg PO TID Qty: 30 0RF Continued acetaminophen 500 mg capsule 500 mg PO Q4H PRN (Reason: pain) Qty: 90 5RF aspirin [Adult Low Dose Aspirin] 81 mg tablet,delayed release (DR/EC) 81 mg PO QDAY Qty: 30 5RF benazepril 10 mg tablet 10 mg PO QDAY Qty: 30 5RF bumetanide 0.5 mg tablet 0.5 mg PO QDAY Qty: 30 5RF fluticasone propionate 50 mcg/actuation spray,suspension 2 spray INTRANASAL QDAY Qty: 16 5RF metoprolol succinate 50 mg tablet extended release 24 hr 25 mg PO BID Qty: 30 5RF tamsulosin [Flomax] 0.4 mg capsule 0.4 mg PO QDAY Qty: 30 5RF lorazepam 2 mg/mL concentrate 1 mg PO QPM PRN (Reason: agitation,anxiety) Qty: 30 0RF Hold Instructions: Doctor's Order quetiapine 50 mg tablet 50 mg PO QHS Qty: 60 5RF olanzapine [Zyprexa] 5 mg tablet 5 mg PO BID Qty: 90 1RF multivitamin Tablet 1 tab PO QDAY Rx Instructions: 2 PM melatonin 1 cap PO QHS levothyroxine [Levo-T] 125 mcg tablet 125 mcg PO QHS sertraline 50 mg tablet 50 mg PO QAM Follow Up Plan Follow up with: Yrn Seth DO [Primary Care Provider] - Patient Disposition: Xfer Other Rehab Potential: Good I certify that the patient requires SNF services: No Overall status at discharge: patient is back to baseline Discharge Orders: Discharge Order (Routine); Ordered 05/14/22 Ordered By: Ihsan Mcintyre
== END 2022-05-14 14:45 | disposition other institution (70) | DRG 392 ==
LOC: ED 14:32 → MEDSUR 19:40 → INTOOBSV 19:40 → OBSVTOIN 19:40
PROVIDERS: ADMIT Internal Medicine; ATTEND Internal Medicine

== ENCOUNTER 2022-07-04 15:32 | Inpatient (IN) ==
--- NOTE | 2022-07-04 15:53 | Emergency Department Note ---
HPI <Cass Fierro PA-C - Last Filed: 07/04/22 20:54> General Chief complaint: Cold/Flu Symptoms Stated complaint: CHF Time Seen by Provider: 07/04/22 15:52 Source: family Mode of arrival: ambulatory History of Present Illness HPI Narrative: Narrative: This patient with history of advanced dementia who lives in a small long term setting presents with his son and caregiver with a complaint of increased irrita bility, cough and appearing to be short of breath. Patient is been a resident of the small private long term for about 8 weeks. Over the last several days patient's had increased agitation and irritability and has had significant difficulty sleeping. Staff have noted that when he lies flat he tends to have a bit of a cough and seems to be short of breath. He does have a history of CHF and is concerned that he may have some pulmonary congestion. He does have some prescription medications that he takes which were last modified at his PCP office on the . He was seen at that time for some mild increase in agitation. He did have labs and urine obtained at that visit without any cabral ges and is presumed that his labs were unremarkable. Patient's not had a fever that staff are aware of. He has not had any vomiting or diarrhea. He does urinate into a depends. Does have history of prostate problems but I do not believe he has been experiencing urinary retention. He has not had any falls that staff is aware of. His son is present who is his power of erisa attorney. Family does want reasonable care and intervention without invasive intervention or heroic intervention. He does have a DNR/DNI order in place. Family is amenable to hospitalization if it is for temporary treatment of a condition that can be resolved. Related Data Home Medications Medication Instructions Recorded Confirmed memantine 10 mg tablet 10 mg PO QPM 06/25/22 06/25/22 Previous Rx's Medication Instructions Recorded aspirin 81 mg tablet,delayed 81 mg PO QDAY #30 tabs 01/29/22 release (Adult Low Dose Aspirin) fluticasone propionate 50 2 spray intranasal QDAY #16 grams 01/29/22 mcg/actuation nasal spray,suspension benazepril 10 mg tablet 10 mg PO QDAY #30 tabs 05/15/22 bumetanide 0.5 mg tablet 0.5 mg PO QDAY #30 tabs 05/15/22 metoprolol succinate 50 mg 25 mg PO BID #30 tabs 05/15/22 tablet,extended release 24 hr multivitamin 1 tab PO QDAY #90 tabs 06/18/22 trazodone 50 mg tablet 50 mg PO QHS #90 tabs 06/25/22 erythromycin 5 mg/gram (0.5 %) eye 1 applic ophthalmic (eye) BID 5 06/26/22 ointment days #3.5 grams levothyroxine 125 mcg tablet 125 mcg PO QHS #30 tabs 07/01/22 (Levo-T) olanzapine 5 mg tablet (Zyprexa) 5 mg PO BID #60 tabs 07/01/22 tamsulosin 0.4 mg capsule (Flomax) 0.4 mg PO QDAY #30 caps 07/01/22 sertraline 50 mg tablet 50 mg PO QAM #30 tabs 07/04/22 Allergies Allergy/AdvReac Type Severity Reaction Status Date / Time No Known Drug Allergies Allergy Verified 06/25/22 15:01 Review of Systems <Cass Fierro PA-C - Last Filed: 07/04/22 20:54> ROS ROS Narrative: Narrative: Patient unable to complete review of systems due to advanced dementia PFSH <Cass Fierro PA-C - Last Filed: 07/04/22 20:54> Narrative Patient History Narrative: Narrative: Medical/Surgical/Family History All Active Problems (Updated 07/05/22 @ 06:49 by Leon Olson MD) Pneumonia (Acute) Acute hypernatremia (Acute) Acute encephalopathy (Acute) Diverticulitis large intestine w/o perforation or abscess w/o bleeding (Acute) MIRELLA (acute kidney injury) (Acute) Acute dehydration (Acute) Diarrhea (Acute) Stage 2 acute kidney injury (Acute) Agitation due to dementia (Acute) Stroke-like symptom (Acute) Abdominal pain (Acute) Acute on chronic alteration in mental status (Acute) Abdominal pain (Acute) PSVT (paroxysmal supraventricular tachycardia) (Acute) Chest pain (Acute) Dizziness (Acute) Syncope (Acute) 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 (Acute) Insomnia (Acute) Confusion (Acute) Rib pain on right side (Acute) Fall (Acute) UTI (urinary tract infection) (Acute) Prostatitis (Acute) Generalized weakness (Acute) Dehydration (Acute) Recurrent falls (Acute) Urinary frequency (Acute) Dementia (Acute) BPH w urinary obs/LUTS (Chronic) Elevated PSA, between 10 and less than 20 ng/ml (Acute) Splenic artery aneurysm (Chronic) Short-term memory loss (Chronic) Hyperlipidemia (Chronic) Chronic kidney disease, stage 3 (moderate) (Chronic) CHF (congestive heart failure) (Chronic) Benign essential hypertension (Chronic) Hypothyroidism (Chronic) Stomach ulcer (Chronic) Depression (Chronic) Acid reflux (Chronic) Hypothyroidism (Acute) Essential (primary) hypertension (Acute) Depression (Acute) Anxiety (Acute) Medical History Acid reflux Benign essential hypertension Chest pain CHF (congestive heart failure) Chronic kidney disease, stage 3 (moderate) Depression Dizziness Hyperlipidemia Hypertension Hypothyroidism Stomach ulcer Surgical History History of appendectomy (~1971) History of cholecystectomy (~1971) History of colonoscopy History of prostate surgery (~2003) History of tonsillectomy (~1940) Family History Grandfather Leukemia Paternal Father Type II diabetes mellitus Mother High blood pressure Social History Alcohol Intake Frequency: 0-2 drinks per day Substance Use: does not use Exam <Cass Fierro PA-C - Last Filed: 07/04/22 20:54> Narrative Narrative: Narrative: Vital signs noted General: mild distress. Patient fidgeting and constantly moving. Skin: Warm. Dry. No rash. Normal color. Eyes: PERRL. EOMI. Mouth: Membranes dry. Neck: Good ROM. No meningeal signs. Supple. Cardiovascular: Regular rate and rhythm. No murmur. Respiratory: No respiratory distress. Breath sounds equal. No wheezing. No rales. Diminished sounds in the bases. Gastrointestinal: Abdomen soft. Increased agitation and groaning with palpation of the abdomen. No guarding. Back: Normal inspection. No CVA tenderness. No midline tenderness. Extremities: No tenderness. No swelling. No erythema. No edema. Neurological: Patient alert. Movement noted in all 4 extremities. Patient unable to follow commands due to advanced dementia. Course <Cass Fierro PA-C - Last Filed: 07/04/22 20:54> Course Course Narrative: The following orders are placed and reviewed by myself: CBC and CHEM panel are reviewed. -Hypernatremia at 157 -Acute on chronic renal insufficiency with creatinine 2.6 and BUN of 65 proBNP above 4000 without comparison Troponin is normal but detectable at 0.02 Chest x-ray is without acute changes to my review UA is negative EKG shows normal sinus rhythm at a rate of 100. Occasional PVC. QRS complexes are wide and in a left bundle branch pattern, however there is significant artifact in V1, V5 and V6. No ST elevation or depression. No significant change compared to prior EKG from January 2022. CT the brain without contrast reported by radiology to be without acute changes. CT of the chest, abdomen pelvis are obtained without contrast given the patient's decreased GFR and elevated creatinine and BUN. Imaging reported by radiology to be significant for parabronchial thickening and infiltrate of the right lower lobe consistent with pneumonia, also small infiltrate versus atelectasis within the left lower lobe. No other acute changes noted. Given the patient's increasing white cell count and cough symptoms will be treated for pneumonia. Patient's pneumonia as well as acute on chronic renal injury with hypernatremia is appropriate for inpatient treatment. This is discussed with the patient's son who is power erisa attorney as well as the provider for the facility. They are agreeable to admission as they feel that the patient may continue to decline at the facility. We do not have bed availability at this facility and are reaching out to other hospitals. They do not want the patient to be transferred a significant distance away. If no availability is available to neighboring facility [facility], the patient will board in the emergency department pending bed availability in the morning. I did speak with hospitalist regarding management with recommendation of treating the patient's agitation with Zyprexa and Ativan if needed, transition patient to D5W at 84 mL/h with every 4 hour Chem-8 checks. Transitioning the patient to half NS at 84/mL/h after the sodium reaches 145. If patient is still in the emergency department a repeat CMP will be completed at 0 800 to determine whether or not the patient is appropriate for discharge versus admission when bed is available. Patient will treated with Rocephin and azithromycin for the pneumonia after blood cultures are obtained. Patient pending transfer versus admission at the end of shift. Vital Signs Vital signs: Vital Signs Temperature 97 F 07/04/22 15:37 Pulse Rate 88 01/19/23 15:37 Respiratory Rate 22 07/04/22 15:37 Blood Pressure 90/50 07/04/22 15:37 Pulse Oximetry (%) 94 07/04/22 15:37 Oxygen Delivery Method Room Air 07/04/22 15:37 Temperature 98.4 F 07/04/22 17:45 Pulse Rate 73 07/05/22 06:03 Respiratory Rate 16 07/04/22 17:45 Blood Pressure 137/77 07/05/22 06:06 Pulse Oximetry (%) 93 07/05/22 06:03 Oxygen Delivery Method Room Air 07/04/22 15:37 <Leon Olson MD - Last Filed: 07/05/22 06:49> Reevaluation(s) Reevaluation #1: The patient had no ill events overnight. He is awaiting his repeat labs and final disposition. The oncoming physician will follow up on these and then make appropriate disposition. Time: 06:47 Vital Signs Vital signs: Vital Signs Temperature 97 F 07/04/22 15:37 Pulse Rate 88 07/04/22 15:37 Respiratory Rate 22 07/04/22 15:37 Blood Pressure 90/50 07/04/22 15:37 Pulse Oximetry (%) 94 07/04/22 15:37 Oxygen Delivery Method Room Air 07/04/22 15:37 Temperature 98.4 F 07/04/22 17:45 Pulse Rate 73 07/05/22 06:03 Respiratory Rate 16 07/04/22 17:45 Blood Pressure 137/77 07/05/22 06:06 Pulse Oximetry (%) 93 07/05/22 06:03 Oxygen Delivery Method Room Air 07/04/22 15:37 MDM <Cass Fierro PA-C - Last Filed: 07/04/22 20:54> MDM Narrative Medical decision making narrative: Narrative: Lab Data 07/04/22 16:14 Labs: Lab Results 07/04/22 07/04/22 07/04/22 Range/Units 16:14 16:14 16:21 WBC 18.8 H (4.5-11.0) K/mcL RBC 5.48 (4.63-6.08) M/mcL Hgb 16.1 (13.7-17.5) g/dL Hct 52.5 H (40.1-51.0) % POC Hct 50.0 (41-55) MCV 95.8 (80.0-100.0) fL MCH 29.4 (26.0-34.0) pg MCHC 30.7 L (31.0-36.0) g/dL RDW 14.6 H (11.5-14.5) % Plt Count 228 (140-440) K/mcL MPV 11.2 (8.8-12.5) fL Immature Gran % (Auto) 1.1 H (0.0-0.5) % Neut % (Auto) 79.7 H (38.0-78.0) % Lymph % (Auto) 11.2 L (15.5-49.0) % Sebastian % (Auto) 6.0 (1.0-12.0) % Eos % (Auto) 1.5 (0.0-7.0) % Baso % (Auto) 0.5 (0.0-2.0) % Lymph # (Auto) 2.10 (1.50-4.80) K/mcL Sebastian # (Auto) 1.13 H (0.10-0.90) K/mcL Eos # (Auto) 0.29 (0.00-0.70) K/mcL Baso # (Auto) 0.09 (0.00-0.30) K/mcL Immature Gran # 0.20 H (0.00-0.05) K/mcl Absolute Neutrophils 15.01 H (1.80-8.00) K/mcL POC VBG pH (7.32-7.42) POC VBG pCO2 at Temp (41-51) POC VBG pO2 (25-40) POC VBG HCO3 (24-28) POC VBG Total CO2 (25-29) POC Venous O2 Sat (40-70) POC VBG Base Excess (-2-2) VBG Lactic Acid (0.5-2) POC Sodium 157 H (133-145) POC Potassium 4.4 (3.3-5.1) POC Chloride 123 H (96-108) POC Total CO2 26.0 (22-30) POC BUN 65 H (6-20) POC Creatinine 2.6 H (0.6-1.2) POC Glucose 112 H (70-105) POC WB Ioniz Calcium 1.12 L (1.16-1.32) NT-Pro-B Natriuret Pep 4396.0 H (<450.0) pg/mL POC Troponin I (0.00-0.08) 07/04/22 07/04/22 07/04/22 Range/Units 16:23 17:45 20:59 WBC (4.5-11.0) K/mcL RBC (4.63-6.08) M/mcL Hgb (13.7-17.5) g/dL Hct (40.1-51.0) % POC Hct 43.0 (41-55) MCV (80.0-100.0) fL MCH (26.0-34.0) pg MCHC (31.0-36.0) g/dL RDW (11.5-14.5) % Plt Count (140-440) K/mcL MPV (8.8-12.5) fL Immature Gran % (Auto) (0.0-0.5) % Neut % (Auto) (38.0-78.0) % Lymph % (Auto) (15.5-49.0) % Sebastian % (Auto) (1.0-12.0) % Eos % (Auto) (0.0-7.0) % Baso % (Auto) (0.0-2.0) % Lymph # (Auto) (1.50-4.80) K/mcL Sebastian # (Auto) (0.10-0.90) K/mcL Eos # (Auto) (0.00-0.70) K/mcL Baso # (Auto) (0.00-0.30) K/mcL Immature Gran # (0.00-0.05) K/mcl Absolute Neutrophils (1.80-8.00) K/mcL POC VBG pH 7.38 (7.32-7.42) POC VBG pCO2 at Temp 42.2 (41-51) POC VBG pO2 29 (25-40) POC VBG HCO3 24.9 (24-28) POC VBG Total CO2 26.0 (25-29) POC Venous O2 Sat 54.0 (40-70) POC VBG Base Excess 0 (-2-2) VBG Lactic Acid 1.5 (0.5-2) POC Sodium 158 H (133-145) POC Potassium 4.0 (3.3-5.1) POC Chloride 125 H (96-108) POC Total CO2 24.0 (22-30) POC BUN 57 H (6-20) POC Creatinine 2.4 H (0.6-1.2) POC Glucose 82 (70-105) POC WB Ioniz Calcium 1.08 L (1.16-1.32) NT-Pro-B Natriuret Pep (<450.0) pg/mL POC Troponin I < 0.02 (0.00-0.08) 07/05/22 07/05/22 Range/Units 00:48 04:39 WBC (4.5-11.0) K/mcL RBC (4.63-6.08) M/mcL Hgb (13.7-17.5) g/dL Hct (40.1-51.0) % POC Hct 39.0 L 45.0 (41-55) MCV (80.0-100.0) fL MCH (26.0-34.0) pg MCHC (31.0-36.0) g/dL RDW (11.5-14.5) % Plt Count (140-440) K/mcL MPV (8.8-12.5) fL Immature Gran % (Auto) (0.0-0.5) % Neut % (Auto) (38.0-78.0) % Lymph % (Auto) (15.5-49.0) % Sebastian % (Auto) (1.0-12.0) % Eos % (Auto) (0.0-7.0) % Baso % (Auto) (0.0-2.0) % Lymph # (Auto) (1.50-4.80) K/mcL Sebastian # (Auto) (0.10-0.90) K/mcL Eos # (Auto) (0.00-0.70) K/mcL Baso # (Auto) (0.00-0.30) K/mcL Immature Gran # (0.00-0.05) K/mcl Absolute Neutrophils (1.80-8.00) K/mcL POC VBG pH (7.32-7.42) POC VBG pCO2 at Temp (41-51) POC VBG pO2 (25-40) POC VBG HCO3 (24-28) POC VBG Total CO2 (25-29) POC Venous O2 Sat (40-70) POC VBG Base Excess (-2-2) VBG Lactic Acid (0.5-2) POC Sodium 155 H 156 H (133-145) POC Potassium 3.9 4.7 (3.3-5.1) POC Chloride 123 H 123 H (96-108) POC Total CO2 24.0 24.0 (22-30) POC BUN 55 H 66 H (6-20) POC Creatinine 2.3 H 2.1 H (0.6-1.2) POC Glucose 131 H 119 H (70-105) POC WB Ioniz Calcium 1.00 L 1.13 L (1.16-1.32) NT-Pro-B Natriuret Pep (<450.0) pg/mL POC Troponin I (0.00-0.08) ED POC Tests ED POC Tests: SILVIA - Influenza A Negative SILVIA - Influenza B Negative SILVIA - SARS Antigen Negative <Leon Olson MD - Last Filed: 07/05/22 06:49> Lab Data Labs: Lab Results 07/04/22 07/04/22 07/04/22 Range/Units 16:14 16:14 16:21 WBC 18.8 H (4.5-11.0) K/mcL RBC 5.48 (4.63-6.08) M/mcL Hgb 16.1 (13.7-17.5) g/dL Hct 52.5 H (40.1-51.0) % POC Hct 50.0 (41-55) MCV 95.8 (80.0-100.0) fL MCH 29.4 (26.0-34.0) pg MCHC 30.7 L (31.0-36.0) g/dL RDW 14.6 H (11.5-14.5) % Plt Count 228 (140-440) K/mcL MPV 11.2 (8.8-12.5) fL Immature Gran % (Auto) 1.1 H (0.0-0.5) % Neut % (Auto) 79.7 H (38.0-78.0) % Lymph % (Auto) 11.2 L (15.5-49.0) % Sebastian % (Auto) 6.0 (1.0-12.0) % Eos % (Auto) 1.5 (0.0-7.0) % Baso % (Auto) 0.5 (0.0-2.0) % Lymph # (Auto) 2.10 (1.50-4.80) K/mcL Sebastian # (Auto) 1.13 H (0.10-0.90) K/mcL Eos # (Auto) 0.29 (0.00-0.70) K/mcL Baso # (Auto) 0.09 (0.00-0.30) K/mcL Immature Gran # 0.20 H (0.00-0.05) K/mcl Absolute Neutrophils 15.01 H (1.80-8.00) K/mcL POC VBG pH (7.32-7.42) POC VBG pCO2 at Temp (41-51) POC VBG pO2 (25-40) POC VBG HCO3 (24-28) POC VBG Total CO2 (25-29) POC Venous O2 Sat (40-70) POC VBG Base Excess (-2-2) VBG Lactic Acid (0.5-2) POC Sodium 157 H (133-145) POC Potassium 4.4 (3.3-5.1) POC Chloride 123 H (96-108) POC Total CO2 26.0 (22-30) POC BUN 65 H (6-20) POC Creatinine 2.6 H (0.6-1.2) POC Glucose 112 H (70-105) POC WB Ioniz Calcium 1.12 L (1.16-1.32) NT-Pro-B Natriuret Pep 4396.0 H (<450.0) pg/mL POC Troponin I (0.00-0.08) 07/04/22 07/04/22 07/04/22 Range/Units 16:23 17:45 20:59 WBC (4.5-11.0) K/mcL RBC (4.63-6.08) M/mcL Hgb (13.7-17.5) g/dL Hct (40.1-51.0) % POC Hct 43.0 (41-55) MCV (80.0-100.0) fL MCH (26.0-34.0) pg MCHC (31.0-36.0) g/dL RDW (11.5-14.5) % Plt Count (140-440) K/mcL MPV (8.8-12.5) fL Immature Gran % (Auto) (0.0-0.5) % Neut % (Auto) (38.0-78.0) % Lymph % (Auto) (15.5-49.0) % Sebastian % (Auto) (1.0-12.0) % Eos % (Auto) (0.0-7.0) % Baso % (Auto) (0.0-2.0) % Lymph # (Auto) (1.50-4.80) K/mcL Sebastian # (Auto) (0.10-0.90) K/mcL Eos # (Auto) (0.00-0.70) K/mcL Baso # (Auto) (0.00-0.30) K/mcL Immature Gran # (0.00-0.05) K/mcl Absolute Neutrophils (1.80-8.00) K/mcL POC VBG pH 7.38 (7.32-7.42) POC VBG pCO2 at Temp 42.2 (41-51) POC VBG pO2 29 (25-40) POC VBG HCO3 24.9 (24-28) POC VBG Total CO2 26.0 (25-29) POC Venous O2 Sat 54.0 (40-70) POC VBG Base Excess 0 (-2-2) VBG Lactic Acid 1.5 (0.5-2) POC Sodium 158 H (133-145) POC Potassium 4.0 (3.3-5.1) POC Chloride 125 H (96-108) POC Total CO2 24.0 (22-30) POC BUN 57 H (6-20) POC Creatinine 2.4 H (0.6-1.2) POC Glucose 82 (70-105) POC WB Ioniz Calcium 1.08 L (1.16-1.32) NT-Pro-B Natriuret Pep (<450.0) pg/mL POC Troponin I < 0.02 (0.00-0.08) 07/05/22 07/05/22 Range/Units 00:48 04:39 WBC (4.5-11.0) K/mcL RBC (4.63-6.08) M/mcL Hgb (13.7-17.5) g/dL Hct (40.1-51.0) % POC Hct 39.0 L 45.0 (41-55) MCV (80.0-100.0) fL MCH (26.0-34.0) pg MCHC (31.0-36.0) g/dL RDW (11.5-14.5) % Plt Count (140-440) K/mcL MPV (8.8-12.5) fL Immature Gran % (Auto) (0.0-0.5) % Neut % (Auto) (38.0-78.0) % Lymph % (Auto) (15.5-49.0) % Sebastian % (Auto) (1.0-12.0) % Eos % (Auto) (0.0-7.0) % Baso % (Auto) (0.0-2.0) % Lymph # (Auto) (1.50-4.80) K/mcL Sebastian # (Auto) (0.10-0.90) K/mcL Eos # (Auto) (0.00-0.70) K/mcL Baso # (Auto) (0.00-0.30) K/mcL Immature Gran # (0.00-0.05) K/mcl Absolute Neutrophils (1.80-8.00) K/mcL POC VBG pH (7.32-7.42) POC VBG pCO2 at Temp (41-51) POC VBG pO2 (25-40) POC VBG HCO3 (24-28) POC VBG Total CO2 (25-29) POC Venous O2 Sat (40-70) POC VBG Base Excess (-2-2) VBG Lactic Acid (0.5-2) POC Sodium 155 H 156 H (133-145) POC Potassium 3.9 4.7 (3.3-5.1) POC Chloride 123 H 123 H (96-108) POC Total CO2 24.0 24.0 (22-30) POC BUN 55 H 66 H (6-20) POC Creatinine 2.3 H 2.1 H (0.6-1.2) POC Glucose 131 H 119 H (70-105) POC WB Ioniz Calcium 1.00 L 1.13 L (1.16-1.32) NT-Pro-B Natriuret Pep (<450.0) pg/mL POC Troponin I (0.00-0.08) ED POC Tests ED POC Tests: SILVIA - Influenza A Negative SILVIA - Influenza B Negative SILVIA - SARS Antigen Negative Discharge Plan Patient/Caregiver Discharge Instructions Pt seen by CLAIMS ACCOUNT SPECIALIST/PA only: Yes Clinical Impression: Acute hypernatremia Pneumonia Qualifiers: Pneumonia type: due to unspecified organism Laterality: unspecified laterality Lung location: unspecified part of lung Qualified Code(s): J18.9 - Pneumonia, unspecified organism Patient Disposition: Still a Patient Follow up with: Yrn Seth DO [Primary Care Provider] - Prescriptions: No Action aspirin [Adult Low Dose Aspirin] 81 mg tablet,delayed release (DR/EC) 81 mg PO QDAY Qty: 30 5RF fluticasone propionate 50 mcg/actuation spray,suspension 2 spray INTRANASAL QDAY Qty: 16 5RF benazepril 10 mg tablet 10 mg PO QDAY Qty: 30 5RF bumetanide 0.5 mg tablet 0.5 mg PO QDAY Qty: 30 5RF metoprolol succinate 50 mg tablet extended release 24 hr 25 mg PO BID Qty: 30 5RF multivitamin Tablet 1 tab PO QDAY Qty: 90 3RF trazodone 50 mg tablet 50 mg PO QHS Qty: 90 2RF erythromycin 5 mg/gram (0.5 %) ointment 1 applic ophthalmic (eye) BID 5 Days Qty: 3.5 0RF tamsulosin [Flomax] 0.4 mg capsule 0.4 mg PO QDAY Qty: 30 5RF levothyroxine [Levo-T] 125 mcg tablet 125 mcg PO QHS Qty: 30 5RF olanzapine [Zyprexa] 5 mg tablet 5 mg PO BID Qty: 60 5RF sertraline 50 mg tablet 50 mg PO QAM Qty: 30 5RF memantine 10 mg tablet 10 mg PO QPM
[2022-07-04 16:37] LABS: POC Calcium, Ionized 1.12 (1.16-1.32); POC Creatinine 2.6 (0.6-1.2); POC Potassium 4.4 (3.3-5.1)
[2022-07-04] MEDS ORDERED: 0.9 % SODIUM CHLORIDE 1,000 ML IV ONE ×2 (16:58→19:53)
[2022-07-04 16:59] LABS: Basophils # (Auto) 0.09 K/mcL (0.00-0.30); Basophils % (Auto) 0.5 % (0.0-2.0); Eosinophils # (Auto) 0.29 K/mcL (0.00-0.70); Eosinophils % (Auto) 1.5 % (0.0-7.0); Hematocrit 52.5 % (40.1-51.0); Hemoglobin 16.1 g/dL (13.7-17.5); Lymphocytes % (Auto) 11.2 % (15.5-49.0); Mean Cell Volume 95.8 fL (80.0-100.0); Mean Corpuscular HGB Conc 30.7 g/dL (31.0-36.0); Mean Platelet Volume 11.2 fL (8.8-12.5); Monocytes # (Auto) 1.13 K/mcL (0.10-0.90); Neutrophils % (Auto) 79.7 % (38.0-78.0); Platelet Count 228 K/mcL (140-440); RBC 5.48 M/mcL (4.63-6.08); Red Cell Distribution Width 14.6 % (11.5-14.5); WBC 18.8 K/mcL (4.5-11.0)
--- NOTE | 2022-07-04 17:22 | XRay Report ---
CLINICAL INFORMATION: Weakness COMPARISON: 01/01/2021 TECHNIQUE: Portable FINDINGS: The heart size, mediastinum and pulmonary vessels are unremarkable. Minor bibasilar atelectasis appreciated. There are no effusions. The bones and soft tissues are within normal limits. IMPRESSION: Minor bibasilar atelectasis. Interpreted and Authenticated by: Yrn Hardwick 07/04/22
[2022-07-04] MEDS ORDERED: LORazepam 2 MG/ML VIAL IV ONE ×2 (17:27→18:18)
[2022-07-04] MEDS ORDERED: cefTRIAXone 1 GM VIAL IV ONE (20:34)
[2022-07-04] MEDS ORDERED: AZITHROMYCIN 500 MG in DEXTROSE 5% IN WATER 250 ML IV ONE (20:34)
[2022-07-04] MEDS ORDERED: LORazepam 2 MG/ML VIAL IV PRN (20:52)
[2022-07-04 21:02] LABS: POC Calcium, Ionized 1.08 (1.16-1.32); POC Creatinine 2.4 (0.6-1.2)
[2022-07-04] MEDS: OLANZapine 10 MG VIAL IM PRN (21:10)
[2022-07-04] MEDS: DEXTROSE 5% IN WATER 1,000 ML IV SCH (21:18)
[2022-07-05 00:50] LABS: POC Creatinine 2.3 (0.6-1.2); POC Potassium 3.9 (3.3-5.1)
[2022-07-05 05:06] LABS: POC Calcium, Ionized 1.13 (1.16-1.32); POC Creatinine 2.1 (0.6-1.2); POC Potassium 4.7 (3.3-5.1)
--- NOTE | 2022-07-05 05:06 | Cat Scan Report ---
CLINICAL INFORMATION: Dementia dysarthria COMPARISON: 02/05/[address] TECHNIQUE: 2.5 mm helical slices were obtained in the skull base to vertex. Following reconstruction, axial reformatted images were reviewed at bone and parenchymal windows. The exam was performed using radiation dose optimization techniques including, but not limited to, automated exposure control, adjustment of the mA and/or kV according to patient size and use of iterative reconstruction technique. FINDINGS: The ventricles, sulci, fissures, and cisterns are symmetrically enlarged compatible with moderate age-related atrophy. No extra-axial fluid collections are identified. Mild patchy chronic ischemic changes, in the deep cerebral white matter, are expected for age. There is no hemorrhage, mass effect, or edema. Bone windows show no osseous abnormality. IMPRESSION: Moderate atrophy and chronic ischemic changes in the deep cerebral white matter-expected for age. No acute findings Interpreted and Authenticated by: Yrn Hardwick 07/05/22
--- NOTE | 2022-07-05 06:01 | Cat Scan Report ---
CLINICAL INFORMATION: Recent weakness cough. History of prostate carcinoma. COMPARISON: None. TECHNIQUE: IV and oral contrast were withheld. 0.625 mm helical slices were obtained from the lung apices through the subtrochanteric regions of the femurs. Following reconstruction, 2.5 mm sagittal, coronal and axial reformatted images were processed and reviewed at multiple windows and levels. 7 mm MIP reconstructions were obtained through the lungs to optimize nodule detection.The exam was performed using radiation dose optimization techniques including, but not limited to, automated exposure control, adjustment of the mA and/or kV according to patient size and use of iterative reconstruction technique. FINDINGS: Pulmonary parenchymal windows show a moderate patchy alveolar infiltrate in the posterior right lower lobe. There is subsegmental atelectasis in the posterior left lower lobe.. Pleural spaces are unremarkable-no effusions. Mediastinal windows show the heart is moderately enlarged with moderate calcific plaque in the coronary arteries.. The pulmonary arteries and thoracic aorta are normal diameter. There is no adenopathy in the mediastinal, hilar or axillary regions. Esophagus is grossly normal. The thyroid is diminutive but without lesion. Abdominal images show the gallbladder is surgically absent. Intrahepatic and common bile ducts are normal caliber CBD is 6 mm. Scattered simple cysts in the liver are unchanged from previous CT . Pancreas shows mild atrophy, but no focal lesion. Both kidneys show scattered simple cysts ranging up to 6 cm inferior pole right kidney. These are unchanged as no significant renal abnormality. The spleen and adrenal glands are unremarkable. 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 The abdominal aorta is normal diameter with scattered atherotic plaque. Pelvic images show moderate prostate enlargement spanning 5.1 x 4.4 cm. Urinary bladder is unremarkable. Scattered sigmoid diverticula appreciated no evidence of diverticulitis. The remaining large bowel is normal. Appendix is surgically absent. Small bowel and stomach are grossly normal. Bone windows show no osteoblastic metastases throughout the chest abdomen or pelvis. Mild T12 compression fracture new from the CT two months ago. Small left inguinal hernia contains only mesenteric fat. IMPRESSION: 1. Moderate infiltrate posterior right lower lobe-likely pneumonia. 2. Mild pancreatic atrophy-stable 3. Moderate prostate enlargement-history of prostate carcinoma acknowledged. No evidence of recurrence, metastatic adenopathy or metastases. 4. Scattered hepatic and renal cysts-stable 5. Moderate cardiomegaly with scattered calcified atherotic plaque in the coronary arteries 6. Diminutive thyroid. Please correlate with TSH to evaluate for hypothyroidism 7. Mild T12 compression fracture-new since CT two months ago. 8. 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
[2022-07-05 09:06] LABS: ALT/SGPT 13 U/L (<40); AST/SGOT 20 U/L (<40); Albumin 2.9 gm/dL (3.2-5.2); Albumin/Globulin Ratio 0.9 (1.0-2.3); Alkaline Phosphatase 95 U/L (39-117); Bilirubin,Total 0.4 mg/dL (0.1-1.0); Blood Urea Nitrogen 52 mg/dL (8-23); Calcium 8.1 mg/dL (8.6-10.4); Carbon Dioxide 25 mmol/L (22-30); Chloride 117 mmol/L (96-108); Globulin 3.1 gm/dL (2.2-3.7); Glomerular Filtration Rate 35; Glucose 107 mg/dL (70-105)
[2022-07-05] MEDS ORDERED: CALCIUM GLUCONATE 4.65 MEQ/10 ML VIAL IV ONE (09:11)
[2022-07-05] MEDS: DEXTROSE 5% IN WATER 1,000 ML IV SCH ×2 (09:19→18:16)
[2022-07-05] MEDS ORDERED: CALCIUM GLUCONATE 4.65 MEQ in DEXTROSE 5% IN WATER 50 ML IV ONE (09:30)
[2022-07-05] MEDS: 0.45 % SODIUM CHLORIDE 1,000 ML IV SCH ×2 (09:59→15:56)
--- NOTE | 2022-07-05 11:55 | EKG ---
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 Measurements Intervals [place] Rate: 107 P: MS: QRS: -78 QRSD: 150 T: 99 QT: 412 QTc: 550 Interpretive Statements SINUS RHYTHM Paired ventricular premature complexes Nonspecific IVCD with LAD Consider anterior infarct Electronically Signed On 07-05-2022 11:54:49 PST by Yrn Calzada M.D. /store/[email or web address]/[id number]
[2022-07-05 13:00] LABS: POC Calcium, Ionized 1.1 (1.16-1.32); POC Creatinine 1.7 (0.6-1.2); POC Potassium 3.7 (3.3-5.1)
--- NOTE | 2022-07-05 14:16 | Internal Med History&Physical ---
HPI History of Present Illness Patient information: Note initiated : 07/05/22 at 2:13 pm Service Date, if different from initiated Date: [] Patient: Deyvi Walton a 89 y/o M admitted on for CHF. Chief Complaint: [] History of present illness: Mr. Walton is a 89 year old M Presents the ED with increased irritability as well as coughing and shortness of breath. He is also had a hard time sleeping. No reported fevers at the facility that he resides at. No nausea vomiting. History obtained from the chart given patient's advanced dementia. Work-up in the ED revealed a right lower lobe pneumonia. He is also hyponatremic with a sodium of 157. He had acute on chronic kidney injury. He had a leukocytosis of 19,000. Also noted to be hypertensive on vital signs. Urine unremarkable for infectious signs but did show hyaline casts. patient given isotonic Fluid boluses initially for hypovolemia and then started on D5 water maintenance fluid for the hyponatremia. Started on antibiotics for pneumonia as well as blood cultures obtained. Patient negative for flu RSV but positive for COVID. pt is not requiring any oxygen at this time. Review of Systems: Unable to obtain given patient's advanced dementia PFSH PFSH All Active Problems (Updated 07/05/22 @ 06:49 by Leon Olson MD) Pneumonia (Acute) Acute hypernatremia (Acute) Acute encephalopathy (Acute) Diverticulitis large intestine w/o perforation or abscess w/o bleeding (Acute) MIRELLA (acute kidney injury) (Acute) Acute dehydration (Acute) Diarrhea (Acute) Stage 2 acute kidney injury (Acute) Agitation due to dementia (Acute) Stroke-like symptom (Acute) Abdominal pain (Acute) Acute on chronic alteration in mental status (Acute) Abdominal pain (Acute) PSVT (paroxysmal supraventricular tachycardia) (Acute) Chest pain (Acute) Dizziness (Acute) Syncope (Acute) 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 (Acute) Insomnia (Acute) Confusion (Acute) Rib pain on right side (Acute) Fall (Acute) UTI (urinary tract infection) (Acute) Prostatitis (Acute) Generalized weakness (Acute) Dehydration (Acute) Recurrent falls (Acute) Urinary frequency (Acute) Dementia (Acute) BPH w urinary obs/LUTS (Chronic) Elevated PSA, between 10 and less than 20 ng/ml (Acute) Splenic artery aneurysm (Chronic) Short-term memory loss (Chronic) Hyperlipidemia (Chronic) Chronic kidney disease, stage 3 (moderate) (Chronic) CHF (congestive heart failure) (Chronic) Benign essential hypertension (Chronic) Hypothyroidism (Chronic) Stomach ulcer (Chronic) Depression (Chronic) Acid reflux (Chronic) Hypothyroidism (Acute) Essential (primary) hypertension (Acute) Depression (Acute) Anxiety (Acute) Medical History Acid reflux Benign essential hypertension Chest pain CHF (congestive heart failure) Chronic kidney disease, stage 3 (moderate) Depression Dizziness Hyperlipidemia Hypertension Hypothyroidism Stomach ulcer Surgical History History of appendectomy (~1971) History of cholecystectomy (~1971) History of colonoscopy History of prostate surgery (~2003) History of tonsillectomy (~1939) Family History Grandfather Leukemia Paternal Father Type II diabetes mellitus Mother High blood pressure Social History marital status: occupational status: retired alcohol intake frequency: 0-2 drinks per day substance use type: does not use MEDS/ALLERGIES Home Medications and Allergies Home Medications Medication Instructions Recorded Confirmed Type aspirin 81 mg tablet,delayed 81 mg PO QDAY #30 tabs 01/29/22 06/25/22 Rx release (Adult Low Dose Aspirin) fluticasone propionate 50 2 spray intranasal QDAY #16 grams 01/29/22 06/25/22 Rx mcg/actuation nasal spray,suspension benazepril 10 mg tablet 10 mg PO QDAY #30 tabs 05/15/22 06/25/22 Rx bumetanide 0.5 mg tablet 0.5 mg PO QDAY #30 tabs 05/15/22 06/25/22 Rx metoprolol succinate 50 mg 25 mg PO BID #30 tabs 05/15/22 06/25/22 Rx tablet,extended release 24 hr multivitamin 1 tab PO QDAY #90 tabs 06/18/22 06/25/22 Rx memantine 10 mg tablet 10 mg PO QPM 06/25/22 06/25/22 History trazodone 50 mg tablet 50 mg PO QHS #90 tabs 06/25/22 06/25/22 Rx erythromycin 5 mg/gram (0.5 %) eye 1 applic ophthalmic (eye) BID 5 06/26/22 Rx ointment days #3.5 grams levothyroxine 125 mcg tablet 125 mcg PO QHS #30 tabs 07/01/22 Rx (Levo-T) olanzapine 5 mg tablet (Zyprexa) 5 mg PO BID #60 tabs 07/01/22 Rx tamsulosin 0.4 mg capsule (Flomax) 0.4 mg PO QDAY #30 caps 07/01/22 Rx sertraline 50 mg tablet 50 mg PO QAM #30 tabs 07/04/22 Rx Allergies Allergy/AdvReac Type Severity Reaction Status Date / Time No Known Drug Allergies Allergy Verified 06/25/22 15:01 EXAM Constitutional Vitals: Temp Pulse Resp BP Pulse Ox O2 Del Method 98.4 F 71 16 205/174 95 Room Air 07/04/22 17:45 07/05/22 14:04 07/04/22 17:45 07/05/22 14:04 07/05/22 14:04 07/04/22 15:37 Exam: General: Alert, Awake, No acute Distress Eyes/N/T: EOMI, PERRL, dry MM Head/Neck: neck supple, normocephalic atraumatic CV: RRR, No murmurs, normal s1/s2 Pulm: Diminished right base, no wheezing Abd: soft, nontender, +BS x4 Ext: no clubbing/cyanosis/edema Neuro: Alert, no focal deficits, moves all extremities, patient is difficulty in answering questions. But does follow simple commands. Skin: warm/dry DATA Data Completed and Pending Labs: Labs from last 24 hours 07/05/22 07/05/22 07/05/22 12:57 08:01 04:39 WBC RBC Hgb Hct POC Hct 41.0 45.0 MCV MCH MCHC RDW Plt Count MPV Immature Gran % (Auto) Neut % (Auto) Lymph % (Auto) Sebastian % (Auto) Eos % (Auto) Baso % (Auto) Lymph # (Auto) Sebastian # (Auto) Eos # (Auto) Baso # (Auto) Immature Gran # Absolute Neutrophils POC VBG pH POC VBG pCO2 at Temp POC VBG pO2 POC VBG HCO3 POC VBG Total CO2 POC Venous O2 Sat POC VBG Base Excess VBG Lactic Acid POC Sodium 151 H 156 H Sodium 151 H POC Potassium 3.7 4.7 Potassium 3.8 POC Chloride 119 H 123 H Chloride 117 H Carbon Dioxide 25 POC Total CO2 24.0 24.0 Anion Gap 9.0 POC BUN 43 H 66 H BUN 52 H Creatinine 1.7 H POC Creatinine 1.7 H 2.1 H GFR Calculation 35 Glucose 107 H POC Glucose 103 119 H Calcium 8.1 L POC WB Ioniz Calcium 1.10 L 1.13 L Total Bilirubin 0.4 AST 20 ALT 13 Alkaline Phosphatase 95 NT-Pro-B Natriuret Pep Total Protein 6.0 Albumin 2.9 L Globulin 3.1 Albumin/Globulin Ratio 0.9 L POC Troponin I 07/05/22 07/04/22 07/04/22 00:48 20:59 17:45 WBC RBC Hgb Hct POC Hct 39.0 L 43.0 MCV MCH MCHC RDW Plt Count MPV Immature Gran % (Auto) Neut % (Auto) Lymph % (Auto) Sebastian % (Auto) Eos % (Auto) Baso % (Auto) Lymph # (Auto) Sebastian # (Auto) Eos # (Auto) Baso # (Auto) Immature Gran # Absolute Neutrophils POC VBG pH 7.38 POC VBG pCO2 at Temp 42.2 POC VBG pO2 29 POC VBG HCO3 24.9 POC VBG Total CO2 26.0 POC Venous O2 Sat 54.0 POC VBG Base Excess 0 VBG Lactic Acid 1.5 POC Sodium 155 H 158 H Sodium POC Potassium 3.9 4.0 Potassium POC Chloride 123 H 125 H Chloride Carbon Dioxide POC Total CO2 24.0 24.0 Anion Gap POC BUN 55 H 57 H BUN Creatinine POC Creatinine 2.3 H 2.4 H GFR Calculation Glucose POC Glucose 131 H 82 Calcium POC WB Ioniz Calcium 1.00 L 1.08 L Total Bilirubin AST ALT Alkaline Phosphatase NT-Pro-B Natriuret Pep Total Protein Albumin Globulin Albumin/Globulin Ratio POC Troponin I 07/04/22 07/04/22 07/04/22 16:23 16:21 16:14 WBC 18.8 H RBC 5.48 Hgb 16.1 Hct 52.5 H POC Hct 50.0 MCV 95.8 MCH 29.4 MCHC 30.7 L RDW 14.6 H Plt Count 228 MPV 11.2 Immature Gran % (Auto) 1.1 H Neut % (Auto) 79.7 H Lymph % (Auto) 11.2 L Sebastian % (Auto) 6.0 Eos % (Auto) 1.5 Baso % (Auto) 0.5 Lymph # (Auto) 2.10 Sebastian # (Auto) 1.13 H Eos # (Auto) 0.29 Baso # (Auto) 0.09 Immature Gran # 0.20 H Absolute Neutrophils 15.01 H POC VBG pH POC VBG pCO2 at Temp POC VBG pO2 POC VBG HCO3 POC VBG Total CO2 POC Venous O2 Sat POC VBG Base Excess VBG Lactic Acid POC Sodium 157 H Sodium POC Potassium 4.4 Potassium POC Chloride 123 H Chloride Carbon Dioxide POC Total CO2 26.0 Anion Gap POC BUN 65 H BUN Creatinine POC Creatinine 2.6 H GFR Calculation Glucose POC Glucose 112 H Calcium POC WB Ioniz Calcium 1.12 L Total Bilirubin AST ALT Alkaline Phosphatase NT-Pro-B Natriuret Pep Total Protein Albumin Globulin Albumin/Globulin Ratio POC Troponin I < 0.02 07/04/22 16:14 WBC RBC Hgb Hct POC Hct MCV MCH MCHC RDW Plt Count MPV Immature Gran % (Auto) Neut % (Auto) Lymph % (Auto) Sebastian % (Auto) Eos % (Auto) Baso % (Auto) Lymph # (Auto) Sebastian # (Auto) Eos # (Auto) Baso # (Auto) Immature Gran # Absolute Neutrophils POC VBG pH POC VBG pCO2 at Temp POC VBG pO2 POC VBG HCO3 POC VBG Total CO2 POC Venous O2 Sat POC VBG Base Excess VBG Lactic Acid POC Sodium Sodium POC Potassium Potassium POC Chloride Chloride Carbon Dioxide POC Total CO2 Anion Gap POC BUN BUN Creatinine POC Creatinine GFR Calculation Glucose POC Glucose Calcium POC WB Ioniz Calcium Total Bilirubin AST ALT Alkaline Phosphatase NT-Pro-B Natriuret Pep 4396.0 H Total Protein Albumin Globulin Albumin/Globulin Ratio POC Troponin I A/P Narrative A/P Narrative: A: *PNA (RLL): *Sepsis: *Covid (+): not requiring oxygen, no treatment needed at this time *Dehydration w/hyponatremia: *MIRELLA on CKD IIIb: *Encephalopathy, acute on chronic: *Advanced Dementia *Depression/anxiety: *HTN: *Hypothyroidism: check tsh * P: -Iv abx, pending BC/SC -IS/Acapella -monitor for O2 need, -D5W and serial sodium checks -Monitor and trend renal function. Avoid nephrotoxic medications -hold home ACEI/Bumex for mirella -prn IV BP meds, adjust home BP meds if necessary when able for better blood pressure control -Monitor and replace electrolytes -Bedside swallow eval - -Home medication reconciliation -PT/OT -CM for placement needs -ppx: Lovenox DNR/DNI Time Spent With Patient Time: Total time spent is greater than 50% in coordination of care (as documented) at patient's floor/unit and/or counseling patient: Initial: Total time with patient: 75 - 90 minutes
[2022-07-05 15:33] LABS: Phosphorous 2.3 mg/dL (2.5-4.5)
[2022-07-05] MEDS ORDERED: POLYETHYLENE GLYCOL 3350 17 GM PACKET PO PRN (15:55)
[2022-07-05] MEDS ORDERED: POTASSIUM CHLORIDE 40 MEQ in DEXTROSE 5% IN WATER 500 ML IV PRN (15:55)
[2022-07-05] MEDS ORDERED: hydrALAZINE 20 MG/ML VIAL IV PRN (15:55)
[2022-07-05] MEDS ORDERED: LABETALOL 5 MG/ML ML IV PRN (15:55)
[2022-07-05] MEDS ORDERED: IPRATROPIUM/ALBUTEROL 3 ML AMPUL.NEB NEB PRN (15:55)
[2022-07-05] MEDS ORDERED: SENNOSIDES 1 TABLET PO PRN (15:55)
[2022-07-05] MEDS ORDERED: MAGNESIUM SULFATE 2 GM/50 ML BAG IV PRN (15:55)
[2022-07-05] MEDS ORDERED: cefTRIAXone 1 GM in DEXTROSE 5% IN WATER 50 ML IV SCH (15:55)
[2022-07-05] MEDS ORDERED: POTASSIUM CHLORIDE 20 MEQ TABLET PO PRN ×2 (15:55)
[2022-07-05] MEDS ORDERED: ONDANSETRON 4 MG/2 ML VIAL IV PRN (15:55)
[2022-07-05] MEDS ORDERED: ACETAMINOPHEN 325 MG TABLET PO PRN (15:55)
[2022-07-05] MEDS: AZITHROMYCIN 500 MG in DEXTROSE 5% IN WATER 250 ML IV SCH (16:21)
[2022-07-05 17:06] LABS: POC Calcium, Ionized 1.05 (1.16-1.32); POC Creatinine 1.7 (0.6-1.2); POC Potassium 3.7 (3.3-5.1)
[2022-07-05] MEDS: cefTRIAXone 1 GM VIAL IV SCH (18:10)
[2022-07-05] MEDS: DOCUSATE SODIUM 100 MG CAPSULE PO SCH (20:33)
[2022-07-05] MEDS: 0.9 % SODIUM CHLORIDE 10 ML SYRINGE IV SCH (22:07)
[2022-07-05 23:20] LABS: POC Calcium, Ionized 0.78 (1.16-1.32); POC Creatinine 1.5 (0.6-1.2); POC Potassium 3.4 (3.3-5.1)
[2022-07-06] MEDS: OLANZapine 10 MG VIAL IM PRN ×2 (01:01→13:00)
[2022-07-06] MEDS: DEXTROSE 5% IN WATER 1,000 ML IV SCH (04:22)
[2022-07-06] MEDS: 0.9 % SODIUM CHLORIDE 10 ML SYRINGE IV SCH ×3 (05:45→21:20)
[2022-07-06 07:21] LABS: Basophils # (Auto) 0.08 K/mcL (0.00-0.30); Basophils % (Auto) 0.8 % (0.0-2.0); Eosinophils % (Auto) 7.7 % (0.0-7.0); Hematocrit 42.6 % (40.1-51.0); Hemoglobin 13.3 g/dL (13.7-17.5); Lymphocytes # (Auto) 1.77 K/mcL (1.50-4.80); Lymphocytes % (Auto) 17.1 % (15.5-49.0); Mean Corpuscular HGB Conc 31.2 g/dL (31.0-36.0); Mean Platelet Volume 11.9 fL (8.8-12.5); Monocytes # (Auto) 0.84 K/mcL (0.10-0.90); Monocytes % (Auto) 8.1 % (1.0-12.0); Neutrophils % (Auto) 65.5 % (38.0-78.0); Platelet Count 128 K/mcL (140-440); RBC 4.53 M/mcL (4.63-6.08); Red Cell Distribution Width 14.1 % (11.5-14.5); WBC 10.4 K/mcL (4.5-11.0)
[2022-07-06 07:26] LABS: ALT/SGPT 11 U/L (<40); AST/SGOT 17 U/L (<40); Albumin 2.5 gm/dL (3.2-5.2); Albumin/Globulin Ratio 0.8 (1.0-2.3); Alkaline Phosphatase 95 U/L (39-117); Bilirubin,Direct < 0.2 mg/dL (0-0.3); Bilirubin,Total 0.5 mg/dL (0.1-1.0); Blood Urea Nitrogen 33 mg/dL (8-23); Calcium 7.7 mg/dL (8.6-10.4); Carbon Dioxide 24 mmol/L (22-30); Chloride 114 mmol/L (96-108); Globulin 3.1 gm/dL (2.2-3.7); Glomerular Filtration Rate 48; Glucose 99 mg/dL (70-105); Lactate Dehydrogenase 204 U/L (135-225); Phosphorous 2.3 mg/dL (2.5-4.5); Triglycerides 104 mg/dL (<150); Uric Acid 8.3 mg/dL (2.5-8.0)
--- NOTE | 2022-07-06 07:31 | Internal Med Progress Note ---
SUBJECTIVE Subjective Patient information: Note initiated : 07/06/22 at 7:27 am Service Date, if different from initiated Date: [] Patient: Deyvi Walton a 89 y/o M admitted on 07/05/22 for CHF. Chief Complaint: [] Interval history: History of present illness: Mr. Walton is a 89 year old M Presents the ED with increased irritability as well as coughing and shortness of breath. He is also had a hard time sleeping. No reported fevers at the facility that he resides at. No nausea vomiting. History obtained from the chart given patient's advanced dementia. Work-up in the ED revealed a right lower lobe pneumonia. He is also hyponatrem ic with a sodium of 157. He had acute on chronic kidney injury. He had a leukocytosis of 19,000. Also noted to be hypertensive on vital signs. Urine unremarkable for infectious signs but did show hyaline casts. patient given isotonic Fluid boluses initially for hypovolemia and then started on D5 water maintenance fluid for the hyponatremia. Started on antibiotics for pneumonia as well as blood cultures obtained. Patient negative for flu RSV but positive for COVID. pt is not requiring any oxygen at this time. 07/06 Patient seems a little agitated this morning. Occasional coughing. On room air. Review of Systems: Unable to obtain given patient's advanced dementia Constitutional Vitals: Vital Signs Temp Pulse Resp BP Pulse Ox O2 Del Method 97.2 F 82 16 130/64 94 Room Air 07/06/22 03:59 07/06/22 03:59 07/06/22 03:59 07/06/22 03:59 07/06/22 03:59 07/06/22 03:59 Period Temp Pulse Resp BP Sys/[place] Pulse Ox O2 Del Method O2 Flow Rate Last 24 Hr 97.2 F-98.4 F 66-88 16-22 120-205/57-174 93-99 Room Air-Room Air Intake and Output 07/05/22 07/06/22 07/06/22 19:59 03:59 11:59 Intake Total 033 11 2049 Output Total 1 3 Balance 104 07 7244 Weight 63.14 kg 63.503 kg Intake & Output: Intake & Output 07/05/22 07/06/22 07/06/22 19:59 03:59 11:59 Intake Total 349 55 2951 Output Total 1 3 Balance 233 38 0450 Weight 63.14 kg 63.503 kg Intake: IV 387 18 8239 Sodium Chloride 0.9% 1,000 ml @ 33 Wide Open IV BOLUS ONE Rx#: [id number] Zithromax 500 mg In Dextrose 5% 250 in Water 250 ml @ 250 mls/hr IV Q24H [facility]ELMA Rx#:[id number] Dextrose 5% in Water 1,000 ml @ 713 1287 100 mls/hr IV .Q10H VELMA Rx#: [id number] Oral 0 Output: # of times incontinent of urine 1 3 Exam: General: Alert, Awake, No acute Distress Eyes/N/T: EOMI, Head/Neck: neck supple, CV: RRR, No murmurs, Pulm: Diminished right base, no wheezing Abd: soft, nontender, +BS x4 Ext: no clubbing/cyanosis/edema Neuro: Alert, no focal deficits, moves all extremities, pysch: dementia Skin: warm/dry OBJ DATA Labs 07/06/22 05:55 07/06/22 05:55 Labs: Abnormal Lab Results 07/06/22 07/06/22 07/05/22 05:55 05:55 23:16 WBC RBC 4.53 L Hgb 13.3 L Hct POC Hct MCHC RDW Plt Count 128 L Immature Gran % (Auto) 0.8 H Neut % (Auto) Lymph % (Auto) Eos % (Auto) 7.7 H [place] # (Auto) Eos # (Auto) 0.80 H Immature Gran # 0.08 H Absolute Neutrophils POC Sodium Sodium 148 H POC Chloride 120 H Chloride 114 H POC Total CO2 20.0 L POC BUN 38 H BUN 33 H Creatinine 1.3 H POC Creatinine 1.5 H Glucose POC Glucose Uric Acid 8.3 H Calcium 7.7 L POC WB Ioniz Calcium 0.78 L Phosphorus 2.3 L C-Reactive Protein NT-Pro-B Natriuret Pep Total Protein 5.6 L Albumin 2.5 L Albumin/Globulin Ratio 0.8 L 07/05/22 07/05/22 07/05/22 17:02 12:57 12:56 WBC RBC Hgb Hct POC Hct 40.0 L MCHC RDW Plt Count Immature Gran % (Auto) Neut % (Auto) Lymph % (Auto) Eos % (Auto) [place] # (Auto) Eos # (Auto) Immature Gran # Absolute Neutrophils POC Sodium 150 H 151 H Sodium POC Chloride 118 H 119 H Chloride POC Total CO2 POC BUN 45 H 43 H BUN Creatinine POC Creatinine 1.7 H 1.7 H Glucose POC Glucose 108 H Uric Acid Calcium POC WB Ioniz Calcium 1.05 L 1.10 L Phosphorus 2.3 L C-Reactive Protein 5.20 H NT-Pro-B Natriuret Pep Total Protein Albumin Albumin/Globulin Ratio 07/05/22 07/05/22 07/05/22 08:01 04:39 00:48 WBC RBC Hgb Hct POC Hct 39.0 L MCHC RDW Plt Count Immature Gran % (Auto) Neut % (Auto) Lymph % (Auto) Eos % (Auto) [place] # (Auto) Eos # (Auto) Immature Gran # Absolute Neutrophils POC Sodium 156 H 155 H Sodium 151 H POC Chloride 123 H 123 H Chloride 117 H POC Total CO2 POC BUN 66 H 55 H BUN 52 H Creatinine 1.7 H POC Creatinine 2.1 H 2.3 H Glucose 107 H POC Glucose 119 H 131 H Uric Acid Calcium 8.1 L POC WB Ioniz Calcium 1.13 L 1.00 L Phosphorus C-Reactive Protein NT-Pro-B Natriuret Pep Total Protein Albumin 2.9 L Albumin/Globulin Ratio 0.9 L 07/04/22 07/04/22 07/04/22 20:59 16:21 16:14 WBC 18.8 H RBC Hgb Hct 52.5 H POC Hct MCHC 30.7 L RDW 14.6 H Plt Count Immature Gran % (Auto) 1.1 H Neut % (Auto) 79.7 H Lymph % (Auto) 11.2 L Eos % (Auto) [place] # (Auto) 1.13 H Eos # (Auto) Immature Gran # 0.20 H Absolute Neutrophils 15.01 H POC Sodium 158 H 157 H Sodium POC Chloride 125 H 123 H Chloride POC Total CO2 POC BUN 57 H 65 H BUN Creatinine POC Creatinine 2.4 H 2.6 H Glucose POC Glucose 112 H Uric Acid Calcium POC WB Ioniz Calcium 1.08 L 1.12 L Phosphorus C-Reactive Protein NT-Pro-B Natriuret Pep Total Protein Albumin Albumin/Globulin Ratio 07/04/22 16:14 WBC RBC Hgb Hct POC Hct MCHC RDW Plt Count Immature Gran % (Auto) Neut % (Auto) Lymph % (Auto) Eos % (Auto) [place] # (Auto) Eos # (Auto) Immature Gran # Absolute Neutrophils POC Sodium Sodium POC Chloride Chloride POC Total CO2 POC BUN BUN Creatinine POC Creatinine Glucose POC Glucose Uric Acid Calcium POC WB Ioniz Calcium Phosphorus C-Reactive Protein NT-Pro-B Natriuret Pep 4396.0 H Total Protein Albumin Albumin/Globulin Ratio Meds: Medications Acetaminophen (Acetaminophen 325 Mg Tablet) 650 mg PO Q6HP PRN PRN Reason: PAIN/FEVER > 101 Albuterol/Ipratropium (Ipratropium/Albuterol 3 Ml Ampul.Neb) 3 ml NEB Q4HP PRN PRN Reason: Shortness Of Breath Ceftriaxone Sodium (Ceftriaxone 1 Gm Vial) 1 gm IV Q24H [facility] Last Admin: 07/05/22 18:10 Dose: 1 gm Docusate Sodium (Docusate Sodium 100 Mg Capsule) 100 mg PO BID [facility] Last Admin: 07/05/22 20:33 Dose: Not Given Enoxaparin Sodium (Enoxaparin 30 Mg/0.3 Ml Syringe) 30 mg SQ DAILY [facility] Hydralazine HCl (Hydralazine 20 Mg/Ml Vial) 0 mg IV Q2HP PRN PRN Reason: Hypertension Magnesium Sulfate (Magnesium Sulfate) 2 gm in 50 mls @ 50 mls/hr IV UD PRN PRN Reason: Magnesium </= 1.6 Potassium Chloride 40 meq/ (Dextrose) 520 mls @ 130 mls/hr IV UD PRN PRN Reason: Potassium < 3 Azithromycin 500 mg/ Dextrose 250 mls @ 250 mls/hr IV Q24H [facility]; Protocol Stop: 07/06/22 16:59 Last Infusion: 07/05/22 17:21 Dose: Infused Dextrose (Dextrose 5% In Water) 1,000 mls @ 100 mls/hr IV .Q10H [facility] Last Admin: 07/06/22 04:22 Dose: 100 mls/hr Labetalol HCl (Labetalol 5 Mg/Ml Ml) 0 mg IV Q2HP PRN PRN Reason: Hypertension Olanzapine (Olanzapine 10 Mg Vial) 2.5 mg IM BID PRN PRN Reason: Agitation Last Admin: 07/06/22 01:01 Dose: 2.5 mg Ondansetron HCl (Ondansetron 4 Mg/2 Ml Vial) 4 mg IV Q4HP PRN PRN Reason: Nausea And Vomiting Polyethylene Glycol (Polyethylene Glycol 3350 17 Gm Packet) 17 gm PO DAILYP PRN PRN Reason: Constipation Potassium Chloride (Potassium Chloride 20 Meq Tablet) 40 meq PO UD PRN PRN Reason: Potassium < 3 Potassium Chloride (Potassium Chloride 20 Meq Tablet) 40 meq PO UD PRN PRN Reason: Potssium is 3-3.5 Senna (Sennosides 1 Tablet) 2 tab PO DAILYP PRN PRN Reason: Constipation Sodium Chloride (0.9 % Sodium Chloride 10 Ml Syringe) 10 ml IV Q8 [facility] Last Admin: 07/06/22 05:45 Dose: Not Given A/P Narrative A/P Narrative: A: *PNA (RLL): -on room air *Sepsis: *Covid (+): not requiring oxygen, no treatment needed at this time *Dehydration w/Hypernatremia: decreasing appropriately *MIRELLA on CKD IIIb: improving with ivf *Encephalopathy, acute on chronic: *Advanced Dementia *Depression/anxiety: *HTN: *Hypothyroidism: tsh wnl P: -Iv abx, pending BC/SC -IS/Acapella -monitor for O2 need, -D5W and serial sodium checks -Monitor and trend renal function. Avoid nephrotoxic medications -hold home ACEI/Bumex for mirella -prn IV BP meds, adjust home BP meds if necessary -Monitor and replace electrolytes -Bedside swallow eval, ST if fails -Home medication reconciliation -PT/OT -CM for placement needs -ppx: Lovenox DNR/DNI Time Spent With Patient Time: Total time spent is greater than 50% in coordination of care (as documented) at patient's floor/unit and/or counseling patient: Subsequent: Total time with patient: 35 - 49 minutes
[2022-07-06] MEDS: ENOXAPARIN 30 MG/0.3 ML SYRINGE SQ SCH (08:31)
[2022-07-06] MEDS: cefTRIAXone 1 GM VIAL IV SCH (08:31)
[2022-07-06] MEDS: DOCUSATE SODIUM 100 MG CAPSULE PO SCH ×2 (08:31→20:53)
[2022-07-06] MEDS: AZITHROMYCIN 500 MG in DEXTROSE 5% IN WATER 250 ML IV SCH (09:12)
[2022-07-06 10:55] LABS: POC Calcium, Ionized 1.02 (1.16-1.32); POC Creatinine 1.4 (0.6-1.2); POC Potassium 3.6 (3.3-5.1)
[2022-07-06] MEDS ORDERED: 0.45 % SODIUM CHLORIDE 1,000 ML IV SCH (11:15)
[2022-07-06 13:56] LABS: POC Creatinine 1.4 (0.6-1.2); POC Potassium 3.6 (3.3-5.1)
[2022-07-06] MEDS ORDERED: hydrOXYzine 50 MG/ML VIAL IM SCH (16:24)
[2022-07-06] MEDS ORDERED: diphenhydrAMINE 25 MG CAPSULE PO SCH (18:28)
[2022-07-06] MEDS: OLANZapine 5 MG TABLET PO PRN (20:53)
[2022-07-07] MEDS: 0.9 % SODIUM CHLORIDE 10 ML SYRINGE IV SCH ×3 (05:59→20:26)
[2022-07-07] MEDS: OLANZapine 10 MG VIAL IM PRN ×2 (06:56→15:01)
[2022-07-07 07:21] LABS: ALT/SGPT 13 U/L (<40); AST/SGOT 25 U/L (<40); Albumin 2.6 gm/dL (3.2-5.2); Albumin/Globulin Ratio 0.8 (1.0-2.3); Alkaline Phosphatase 97 U/L (39-117); Bilirubin,Direct < 0.2 mg/dL (0-0.3); Bilirubin,Total 0.5 mg/dL (0.1-1.0); Blood Urea Nitrogen 27 mg/dL (8-23); Calcium 7.8 mg/dL (8.6-10.4); Carbon Dioxide 22 mmol/L (22-30); Chloride 109 mmol/L (96-108); Globulin 3.4 gm/dL (2.2-3.7); Glomerular Filtration Rate 44; Glucose 64 mg/dL (70-105); Lactate Dehydrogenase 262 U/L (135-225); Phosphorous 2.5 mg/dL (2.5-4.5); Triglycerides 112 mg/dL (<150); Uric Acid 8.2 mg/dL (2.5-8.0)
[2022-07-07 07:54] LABS: Basophils # (Auto) 0.09 K/mcL (0.00-0.30); Basophils % (Auto) 0.9 % (0.0-2.0); Eosinophils # (Auto) 0.75 K/mcL (0.00-0.70); Eosinophils % (Auto) 7.5 % (0.0-7.0); Hematocrit 44.6 % (40.1-51.0); Hemoglobin 13.9 g/dL (13.7-17.5); Lymphocytes # (Auto) 2.11 K/mcL (1.50-4.80); Mean Cell Volume 95.1 fL (80.0-100.0); Mean Corpuscular HGB Conc 31.2 g/dL (31.0-36.0); Mean Platelet Volume 11.7 fL (8.8-12.5); Neutrophils % (Auto) 61.6 % (38.0-78.0); Platelet Count 196 K/mcL (140-440); RBC 4.69 M/mcL (4.63-6.08); Red Cell Distribution Width 13.9 % (11.5-14.5); WBC 10.1 K/mcL (4.5-11.0)
--- NOTE | 2022-07-07 08:00 | Internal Med Progress Note ---
SUBJECTIVE Subjective Patient information: Note initiated : 07/07/22 at 7:56 am Service Date, if different from initiated Date: [] Patient: Deyvi Walton a 89 y/o M admitted on 07/05/22 for CHF. Chief Complaint: [] Interval history: History of present illness: Mr. Walton is a 89 year old M Presents the ED with increased irritability as well as coughing and shortness of breath. He is also had a hard time sleeping. No reported fevers at the facility that he resides at. No nausea vomiting. History obtained from the chart given patient's advanced dementia. Work-up in the ED revealed a right lower lobe pneumonia. He is also hyponatrem ic with a sodium of 157. He had acute on chronic kidney injury. He had a leukocytosis of 19,000. Also noted to be hypertensive on vital signs. Urine unremarkable for infectious signs but did show hyaline casts. patient given isotonic Fluid boluses initially for hypovolemia and then started on D5 water maintenance fluid for the hyponatremia. Started on antibiotics for pneumonia as well as blood cultures obtained. Patient negative for flu RSV but positive for COVID. pt is not requiring any oxygen at this time. 07/06 Patient seems a little agitated this morning. Occasional coughing. On room air. 07/07 Patient sleeping does open eyes. But does not verbalize. Patient agitated at night going through in the evenings. Sodium level improved. Review of Systems: Unable to obtain given patient's advanced dementia Constitutional Vitals: Vital Signs Temp Pulse Resp BP Pulse Ox O2 Del Method 98.0 F 77 16 120/78 96 Room Air 07/07/22 07:00 07/07/22 07:00 07/07/22 07:00 07/07/22 07:00 07/07/22 07:00 07/07/22 07:00 Period Temp Pulse Resp BP Sys/Oconnor Pulse Ox O2 Del Method O2 Flow Rate Last 24 Hr 97.1 F-98.7 F 77-92 16-20 114-131/73-99 94-100 Room Air-Room Air Intake and Output 07/06/22 07/07/22 07/07/22 19:59 03:59 11:59 Intake Total 1120 1000 Output Total 1 2 2 Balance 1119 998 -2 Weight 63.004 kg Intake & Output: Intake & Output 07/06/22 07/07/22 07/07/22 19:59 03:59 11:59 Intake Total 1120 1000 Output Total 1 2 2 Balance 1119 998 -2 Weight 63.004 kg Intake: IV 1000 1000 Sodium Chloride 0.45% 1,000 ml 1000 @ 84 mls/hr IV .[id number] [facility] Rx# :[id number] Dextrose 5% in Water 1,000 ml @ 1000 100 mls/hr IV .Q10H [facility] Rx#: [id number] Oral 120 Output: # of times incontinent of urine 1 2 2 Other: Meal Dinner Percent of Meal Consumed 10% Feeding Ability Needs Supervision # Voids 1 1 Exam: General: Sleeping but awakens,, No acute Distress Eyes/N/T: EOMI, Head/Neck: neck supple, CV: RRR, No murmurs, Pulm: Diminished right base, no wheezing Abd: soft, nontender, +BS x4 Ext: no clubbing/cyanosis/edema Neuro: Awake and opens eyes but does not verbalize, no focal deficits, moves all extremities, pysch: dementia Skin: warm/dry OBJ DATA Labs 07/07/22 05:44 07/07/22 05:44 Labs: Abnormal Lab Results 07/07/22 07/07/22 07/06/22 05:44 05:44 13:54 WBC RBC Hgb Hct POC Hct MCHC RDW Plt Count Immature Gran % (Auto) 1.0 H Neut % (Auto) Lymph % (Auto) Eos % (Auto) 7.5 H [place] # (Auto) Eos # (Auto) 0.75 H Immature Gran # 0.10 H Absolute Neutrophils POC Sodium Sodium POC Chloride 112 H Chloride 109 H POC Total CO2 POC BUN 30 H BUN 27 H Creatinine 1.4 H POC Creatinine 1.4 H Glucose 64 L POC Glucose Uric Acid 8.2 H Calcium 7.8 L POC WB Ioniz Calcium 1.00 L Phosphorus Lactate Dehydrogenase 262 H C-Reactive Protein NT-Pro-B Natriuret Pep Total Protein Albumin 2.6 L Albumin/Globulin Ratio 0.8 L 07/06/22 07/06/22 07/06/22 10:52 05:55 05:55 WBC RBC 4.53 L Hgb 13.3 L Hct POC Hct 40.0 L MCHC RDW Plt Count 128 L Immature Gran % (Auto) 0.8 H Neut % (Auto) Lymph % (Auto) Eos % (Auto) 7.7 H [place] # (Auto) Eos # (Auto) 0.80 H Immature Gran # 0.08 H Absolute Neutrophils POC Sodium Sodium 148 H POC Chloride 113 H Chloride 114 H POC Total CO2 POC BUN 28 H BUN 33 H Creatinine 1.3 H POC Creatinine 1.4 H Glucose POC Glucose 136 H Uric Acid 8.3 H Calcium 7.7 L POC WB Ioniz Calcium 1.02 L Phosphorus 2.3 L Lactate Dehydrogenase C-Reactive Protein NT-Pro-B Natriuret Pep Total Protein 5.6 L Albumin 2.5 L Albumin/Globulin Ratio 0.8 L 07/05/22 07/05/22 07/05/22 23:16 17:02 12:57 WBC RBC Hgb Hct POC Hct 40.0 L MCHC RDW Plt Count Immature Gran % (Auto) Neut % (Auto) Lymph % (Auto) Eos % (Auto) [place] # (Auto) Eos # (Auto) Immature Gran # Absolute Neutrophils POC Sodium 150 H 151 H Sodium POC Chloride 120 H 118 H 119 H Chloride POC Total CO2 20.0 L POC BUN 38 H 45 H 43 H BUN Creatinine POC Creatinine 1.5 H 1.7 H 1.7 H Glucose POC Glucose 108 H Uric Acid Calcium POC WB Ioniz Calcium 0.78 L 1.05 L 1.10 L Phosphorus Lactate Dehydrogenase C-Reactive Protein NT-Pro-B Natriuret Pep Total Protein Albumin Albumin/Globulin Ratio 07/05/22 07/05/22 07/05/22 12:56 08:01 04:39 WBC RBC Hgb Hct POC Hct MCHC RDW Plt Count Immature Gran % (Auto) Neut % (Auto) Lymph % (Auto) Eos % (Auto) [place] # (Auto) Eos # (Auto) Immature Gran # Absolute Neutrophils POC Sodium 156 H Sodium 151 H POC Chloride 123 H Chloride 117 H POC Total CO2 POC BUN 66 H BUN 52 H Creatinine 1.7 H POC Creatinine 2.1 H Glucose 107 H POC Glucose 119 H Uric Acid Calcium 8.1 L POC WB Ioniz Calcium 1.13 L Phosphorus 2.3 L Lactate Dehydrogenase C-Reactive Protein 5.20 H NT-Pro-B Natriuret Pep Total Protein Albumin 2.9 L Albumin/Globulin Ratio 0.9 L 07/05/22 07/04/22 07/04/22 00:48 20:59 16:21 WBC RBC Hgb Hct POC Hct 39.0 L MCHC RDW Plt Count Immature Gran % (Auto) Neut % (Auto) Lymph % (Auto) Eos % (Auto) [place] # (Auto) Eos # (Auto) Immature Gran # Absolute Neutrophils POC Sodium 155 H 158 H 157 H Sodium POC Chloride 123 H 125 H 123 H Chloride POC Total CO2 POC BUN 55 H 57 H 65 H BUN Creatinine POC Creatinine 2.3 H 2.4 H 2.6 H Glucose POC Glucose 131 H 112 H Uric Acid Calcium POC WB Ioniz Calcium 1.00 L 1.08 L 1.12 L Phosphorus Lactate Dehydrogenase C-Reactive Protein NT-Pro-B Natriuret Pep Total Protein Albumin Albumin/Globulin Ratio 07/04/22 07/04/22 16:14 16:14 WBC 18.8 H RBC Hgb Hct 52.5 H POC Hct MCHC 30.7 L RDW 14.6 H Plt Count Immature Gran % (Auto) 1.1 H Neut % (Auto) 79.7 H Lymph % (Auto) 11.2 L Eos % (Auto) [place] # (Auto) 1.13 H Eos # (Auto) Immature Gran # 0.20 H Absolute Neutrophils 15.01 H POC Sodium Sodium POC Chloride Chloride POC Total CO2 POC BUN BUN Creatinine POC Creatinine Glucose POC Glucose Uric Acid Calcium POC WB Ioniz Calcium Phosphorus Lactate Dehydrogenase C-Reactive Protein NT-Pro-B Natriuret Pep 4396.0 H Total Protein Albumin Albumin/Globulin Ratio Meds: Medications Acetaminophen (Acetaminophen 325 Mg Tablet) 650 mg PO Q6HP PRN PRN Reason: PAIN/FEVER > 101 Last Admin: 07/06/22 20:52 Dose: 650 mg Albuterol/Ipratropium (Ipratropium/Albuterol 3 Ml Ampul.Neb) 3 ml NEB Q4HP PRN PRN Reason: Shortness Of Breath Ceftriaxone Sodium (Ceftriaxone 1 Gm Vial) 1 gm IV Q24H [facility] Last Admin: 07/06/22 08:31 Dose: 1 gm Docusate Sodium (Docusate Sodium 100 Mg Capsule) 100 mg PO BID [facility] Last Admin: 07/06/22 20:53 Dose: 100 mg Enoxaparin Sodium (Enoxaparin 30 Mg/0.3 Ml Syringe) 30 mg SQ DAILY [facility] Last Admin: 07/06/22 08:31 Dose: 30 mg Hydralazine HCl (Hydralazine 20 Mg/Ml Vial) 0 mg IV Q2HP PRN PRN Reason: Hypertension Magnesium Sulfate (Magnesium Sulfate) 2 gm in 50 mls @ 50 mls/hr IV UD PRN PRN Reason: Magnesium </= 1.6 Potassium Chloride 40 meq/ (Dextrose) 520 mls @ 130 mls/hr IV UD PRN PRN Reason: Potassium < 3 Labetalol HCl (Labetalol 5 Mg/Ml Ml) 0 mg IV Q2HP PRN PRN Reason: Hypertension Olanzapine (Olanzapine 5 Mg Tablet) 5 mg PO Q8HP PRN PRN Reason: AGGITATION Last Admin: 07/06/22 20:53 Dose: 5 mg Olanzapine (Olanzapine 10 Mg Vial) 5 mg IM Q8HP PRN PRN Reason: AGGITAITON Last Admin: 07/07/22 06:56 Dose: 5 mg Ondansetron HCl (Ondansetron 4 Mg/2 Ml Vial) 4 mg IV Q4HP PRN PRN Reason: Nausea And Vomiting Polyethylene Glycol (Polyethylene Glycol 3350 17 Gm Packet) 17 gm PO DAILYP PRN PRN Reason: Constipation Potassium Chloride (Potassium Chloride 20 Meq Tablet) 40 meq PO UD PRN PRN Reason: Potassium < 3 Potassium Chloride (Potassium Chloride 20 Meq Tablet) 40 meq PO UD PRN PRN Reason: Potssium is 3-3.5 Senna (Sennosides 1 Tablet) 2 tab PO DAILYP PRN PRN Reason: Constipation Sodium Chloride (0.9 % Sodium Chloride 10 Ml Syringe) 10 ml IV Q8 [facility] Last Admin: 07/07/22 05:59 Dose: 10 ml A/P Narrative A/P Narrative: A: *PNA (RLL): -on room air *Oropharygneal Dysphagia, mild: *Sepsis: improved *Covid (+): not requiring oxygen, no treatment needed at this time *Dehydration w/Hypernatremia: improving *Poor sleep pattern *MIRELLA on CKD IIIb: improving with ivf *Encephalopathy, acute on chronic: better, but is having sundowning now *Advanced Dementia *Depression/anxiety: *HTN: *Hypothyroidism: tsh wnl P: -Iv abx, pending BC/SC -IS/Acapella -IV hydration prn -monitor for O2 need, -Monitor and trend renal function. Avoid nephrotoxic medications -hold home ACEI/Bumex for mirella -monitor BP, adjust home BP meds if necessary -Monitor and replace electrolytes -prn zyprexa, work on getting some sleep, poor sleep over past couple days -pulled several IV lines out. -diet per ST -PT/OT -CM for placement needs -ppx: Lovenox DNR/DNI Time Spent With Patient Time: Total time spent is greater than 50% in coordination of care (as documented) at patient's floor/unit and/or counseling patient: Subsequent: Total time with patient: 35 - 49 minutes
[2022-07-07] MEDS: TAMSULOSIN 0.4 MG CAPSULE PO SCH (10:42)
[2022-07-07] MEDS: cefTRIAXone 1 GM VIAL IV SCH (10:42)
[2022-07-07] MEDS: ASPIRIN 81 MG TAB.CHEW PO SCH (10:42)
[2022-07-07] MEDS: ENOXAPARIN 30 MG/0.3 ML SYRINGE SQ SCH (10:43)
[2022-07-07] MEDS: METOPROLOL SUCCINATE 50 MG TAB.XL.24H PO SCH ×2 (10:43→20:20)
[2022-07-07] MEDS: SERTRALINE 50 MG TABLET PO SCH (10:43)
[2022-07-07] MEDS: DOCUSATE SODIUM 100 MG CAPSULE PO SCH ×2 (10:43→20:23)
--- NOTE | 2022-07-07 11:32 | Discharge Summary ---
Discharge Provider Provider IMPORTANT FOLLOW-UP INFORMATION FOR PCP: Patient information: Note initiated : 07/07/22 at 11:30 am Service Date, if different from initiated Date: [] Patient: Deyvi Walton 89 y/o M admitted on 07/05/22 for CHF. Chief Complaint: [] Date of admission: 07/05/22 15:34 Discharge date: 07/08/22 Primary care physician: Yrn Seth DO Consults: 07/04/22 Consult to Physician [CONS] Stat Comment: Consulting Provider: Juwan Roland Reason For Exam: Physician to Consult COURSE Hospital Course Hospital course: History of present illness: Mr. Walton is a 89 year old M Presents the ED with increased irritability as well as coughing and shortness of breath. He is also had a hard time sleeping. No reported fevers at the facility that he resides at. No nausea vomiting. History obtained from the chart given patient's advanced dementia. Work-up in the ED revealed a right lower lobe pneumonia. He is also hyponatremic with a sodium of 157. He had acute on chronic kidney injury. He had a leukocytosis of 19,000. Also noted to be hypertensive on vital signs. Urine unremarkable for infectious signs but did show hyaline casts. patient given isotonic Fluid boluses initially for hypovolemia and then started on D5 water maintenance fluid for the hyponatremia. Started on antibiotics for pneumonia as well as blood cultures obtained. Patient negative for flu RSV but positive for COVID. pt is not requiring any oxygen at this time. 07/06 Patient seems a little agitated this morning. Occasional coughing. On room air. 07/07 Patient sleeping does open eyes. But does not verbalize. Patient agitated at night going through sundowning in the evenings. Sodium level improved. 07/08 Patient sitting up eating breakfast. Seems to be in good state. Cooperative. No overnight event or new complaints. A: *PNA (RLL): -on room air *Oropharygneal Dysphagia, mild: *Sepsis: improved *Covid (+): not requiring oxygen, no treatment needed at this time *Dehydration w/Hypernatremia: improving *Poor sleep pattern *MIRELLA on CKD IIIb: improving with ivf *Encephalopathy, acute on chronic: better, but is having sundowning now *Advanced Dementia *Depression/anxiety: *HTN: *Hypothyroidism: tsh wnl P: -abx Discharge diagnosis: Pneumonia dysphagia sepsis hyponatremia dehydration COVID- positive Time Spent with Patient Time attestation: Total time spent providing and/or coordinating discharge services: Time spent: Greater than 30 minutes EXAM Constitutional Vitals: Temp Pulse Resp BP Pulse Ox O2 Del Method 98.0 F 77 16 120/78 96 Room Air 07/07/22 07:00 07/07/22 07:00 07/07/22 07:00 07/07/22 07:00 07/07/22 07:00 07/07/22 07:00 Discharge Data Data Completed and Pending Labs on day of discharge: Labs from last 24 hours 07/07/22 07/07/22 07/06/22 05:44 05:44 13:54 WBC 10.1 RBC 4.69 Hgb 13.9 Hct 44.6 POC Hct 41.0 MCV 95.1 MCH 29.6 MCHC 31.2 RDW 13.9 Plt Count 196 MPV 11.7 Immature Gran % (Auto) 1.0 H Neut % (Auto) 61.6 Lymph % (Auto) 21.0 Johnson % (Auto) 8.0 Eos % (Auto) 7.5 H Baso % (Auto) 0.9 Lymph # (Auto) 2.11 Johnson # (Auto) 0.80 Eos # (Auto) 0.75 H Baso # (Auto) 0.09 Immature Gran # 0.10 H Absolute Neutrophils 6.20 POC Sodium 143 Sodium 141 POC Potassium 3.6 Potassium 3.9 POC Chloride 112 H Chloride 109 H Carbon Dioxide 22 POC Total CO2 22.0 Anion Gap 10.0 POC BUN 30 H BUN 27 H Creatinine 1.4 H POC Creatinine 1.4 H GFR Calculation 44 Glucose 64 L POC Glucose 81 Uric Acid 8.2 H Calcium 7.8 L POC WB Ioniz Calcium 1.00 L Phosphorus 2.5 Magnesium 1.9 Total Bilirubin 0.5 Direct Bilirubin < 0.2 GGT 24 AST 25 ALT 13 Alkaline Phosphatase 97 Lactate Dehydrogenase 262 H Total Protein 6.0 Albumin 2.6 L Globulin 3.4 Albumin/Globulin Ratio 0.8 L Triglycerides 112 Preliminary micro results at discharge 07/04/22 20:55 Blood Culture - Preliminary Blood 07/04/22 20:49 Blood Culture - Preliminary Blood Discharge Plan Patient/Caregiver Discharge Instructions Activity: increase activity as tolerated Diet: Dysphagia Level 4 Pureed Foods and Thickened Liquids Prescriptions: New cefdinir 300 mg capsule 300 mg PO BID Qty: 4 0RF Continued aspirin [Adult Low Dose Aspirin] 81 mg tablet,delayed release (DR/EC) 81 mg PO QDAY Qty: 30 5RF fluticasone propionate 50 mcg/actuation spray,suspension 2 spray INTRANASAL QDAY Qty: 16 5RF benazepril 10 mg tablet 10 mg PO QDAY Qty: 30 5RF bumetanide 0.5 mg tablet 0.5 mg PO QDAY Qty: 30 5RF metoprolol succinate 50 mg tablet extended release 24 hr 25 mg PO BID Qty: 30 5RF multivitamin Tablet 1 tab PO QDAY Qty: 90 3RF trazodone 50 mg tablet 50 mg PO QHS Qty: 90 2RF erythromycin 5 mg/gram (0.5 %) ointment 1 applic ophthalmic (eye) BID 5 Days Qty: 3.5 0RF tamsulosin [Flomax] 0.4 mg capsule 0.4 mg PO QDAY Qty: 30 5RF levothyroxine [Levo-T] 125 mcg tablet 125 mcg PO QHS Qty: 30 5RF olanzapine [Zyprexa] 5 mg tablet 5 mg PO BID Qty: 60 5RF sertraline 50 mg tablet 50 mg PO QAM Qty: 30 5RF memantine 10 mg tablet 10 mg PO QPM Follow Up Plan Follow up with: Yrn Seth DO [Primary Care Provider] - Patient Disposition: Xfer SNF Prognosis: Undetermined Rehab Potential: Fair I certify that the patient requires SNF services: Yes Overall status at discharge: patient is progressing back to baseline Discharge Orders: Discharge Order (Routine); Ordered 07/08/22 Ordered By: Juwan Roland
[2022-07-07] MEDS ORDERED: MEMANTINE 10 MG TABLET PO SCH (21:00)
[2022-07-07] MEDS ORDERED: LEVOTHYROXINE 125 MCG TABLET PO SCH (21:00)
[2022-07-07] MEDS ORDERED: traZODone HCL 50 MG TABLET PO SCH (21:00)
[2022-07-07] MEDS: OLANZapine 5 MG TABLET PO PRN (23:16)
[2022-07-08] MEDS: 0.9 % SODIUM CHLORIDE 10 ML SYRINGE IV SCH (05:47)
[2022-07-08] MEDS: METOPROLOL SUCCINATE 50 MG TAB.XL.24H PO SCH ×2 (08:26→09:13)
[2022-07-08] MEDS: SERTRALINE 50 MG TABLET PO SCH (08:27)
--- NOTE | 2022-07-08 08:27 | Internal Med Progress Note ---
SUBJECTIVE Subjective Patient information: Note initiated : 07/08/22 at 8:26 am Service Date, if different from initiated Date: [] Patient: Deyvi Walton a 89 y/o M admitted on 07/05/22 for CHF. Chief Complaint: [] Interval history: History of present illness: Mr. Walton is a 89 year old M Presents the ED with increased irritability as well as coughing and shortness of breath. He is also had a hard time sleeping. No reported fevers at the facility that he resides at. No nausea vomiting. History obtained from the chart given patient's advanced dementia. Work-up in the ED revealed a right lower lobe pneumonia. He is also hyponatrem ic with a sodium of 157. He had acute on chronic kidney injury. He had a leukocytosis of 19,000. Also noted to be hypertensive on vital signs. Urine unremarkable for infectious signs but did show hyaline casts. patient given isotonic Fluid boluses initially for hypovolemia and then started on D5 water maintenance fluid for the hyponatremia. Started on antibiotics for pneumonia as well as blood cultures obtained. Patient negative for flu RSV but positive for COVID. pt is not requiring any oxygen at this time. 07/06 Patient seems a little agitated this morning. Occasional coughing. On room air. 07/07 Patient sleeping does open eyes. But does not verbalize. Patient agitated at night going through in the evenings. Sodium level improved. 07/08 Patient sitting up eating breakfast. Seems to be in good state. Cooperative. No overnight event or new complaints. Review of Systems: Unable to obtain given patient's advanced dementia Constitutional Vitals: Vital Signs Temp Pulse Resp BP Pulse Ox O2 Del Method 97.3 F 78 16 119/90 95 Room Air 07/08/22 08:00 07/08/22 08:00 07/08/22 08:00 07/08/22 08:00 07/08/22 08:00 07/08/22 08:00 Period Temp Pulse Resp BP Sys/[place]nor Pulse Ox O2 Del Method O2 Flow Rate Last 24 Hr 97.3 F-98.9 F 65-95 14-16 119-139/58-92 95-100 Room Air-Room Air Intake and Output 07/07/22 07/08/22 07/08/22 19:59 03:59 11:59 Intake Total 1470 Output Total 952 226 2 Balance 518 -226 -2 Weight 61.552 kg Intake & Output: Intake & Output 07/07/22 07/08/22 07/08/22 19:59 03:59 11:59 Intake Total 1470 Output Total 952 226 2 Balance 518 -226 -2 Weight 61.552 kg Intake: Oral 1120 GI Tube Flush 350 Output: Void Amount 950 225 # of times incontinent of urine 2 1 2 Other: Meal Dinner Percent of Meal Consumed 75% Feeding Ability Needs Supervision Urine Appearance Clear Urine Color Yellow # Voids 1 1 Exam: General: Awake,, No acute Distress Eyes/N/T: EOMI, Head/Neck: neck supple, CV: RRR, No murmurs, Pulm: Diminished right base improving, no wheezing Abd: soft, nontender, +BS x4 Ext: no clubbing/cyanosis/edema Neuro: Awake and alert, no focal deficits, moves all extremities, follows commands pysch: dementia Skin: warm/dry OBJ DATA Labs 07/07/22 05:44 07/07/22 05:44 Labs: Abnormal Lab Results 07/07/22 07/07/22 07/06/22 05:44 05:44 13:54 RBC Hgb POC Hct Plt Count Immature Gran % (Auto) 1.0 H Eos % (Auto) 7.5 H Eos # (Auto) 0.75 H Immature Gran # 0.10 H POC Sodium Sodium POC Chloride 112 H Chloride 109 H POC Total CO2 POC BUN 30 H BUN 27 H Creatinine 1.4 H POC Creatinine 1.4 H Glucose 64 L POC Glucose Uric Acid 8.2 H Calcium 7.8 L POC WB Ioniz Calcium 1.00 L Phosphorus Lactate Dehydrogenase 262 H C-Reactive Protein Total Protein Albumin 2.6 L Albumin/Globulin Ratio 0.8 L 07/06/22 07/06/22 07/06/22 10:52 05:55 05:55 RBC 4.53 L Hgb 13.3 L POC Hct 40.0 L Plt Count 128 L Immature Gran % (Auto) 0.8 H Eos % (Auto) 7.7 H Eos # (Auto) 0.80 H Immature Gran # 0.08 H POC Sodium Sodium 148 H POC Chloride 113 H Chloride 114 H POC Total CO2 POC BUN 28 H BUN 33 H Creatinine 1.3 H POC Creatinine 1.4 H Glucose POC Glucose 136 H Uric Acid 8.3 H Calcium 7.7 L POC WB Ioniz Calcium 1.02 L Phosphorus 2.3 L Lactate Dehydrogenase C-Reactive Protein Total Protein 5.6 L Albumin 2.5 L Albumin/Globulin Ratio 0.8 L 07/05/22 07/05/22 07/05/22 23:16 17:02 12:57 RBC Hgb POC Hct 40.0 L Plt Count Immature Gran % (Auto) Eos % (Auto) Eos # (Auto) Immature Gran # POC Sodium 150 H 151 H Sodium POC Chloride 120 H 118 H 119 H Chloride POC Total CO2 20.0 L POC BUN 38 H 45 H 43 H BUN Creatinine POC Creatinine 1.5 H 1.7 H 1.7 H Glucose POC Glucose 108 H Uric Acid Calcium POC WB Ioniz Calcium 0.78 L 1.05 L 1.10 L Phosphorus Lactate Dehydrogenase C-Reactive Protein Total Protein Albumin Albumin/Globulin Ratio 07/05/22 07/05/22 12:56 08:01 RBC Hgb POC Hct Plt Count Immature Gran % (Auto) Eos % (Auto) Eos # (Auto) Immature Gran # POC Sodium Sodium 151 H POC Chloride Chloride 117 H POC Total CO2 POC BUN BUN 52 H Creatinine 1.7 H POC Creatinine Glucose 107 H POC Glucose Uric Acid Calcium 8.1 L POC WB Ioniz Calcium Phosphorus 2.3 L Lactate Dehydrogenase C-Reactive Protein 5.20 H Total Protein Albumin 2.9 L Albumin/Globulin Ratio 0.9 L Meds: Medications Acetaminophen (Acetaminophen 325 Mg Tablet) 650 mg PO Q6HP PRN PRN Reason: PAIN/FEVER > 101 Last Admin: 07/06/22 20:52 Dose: 650 mg Albuterol/Ipratropium (Ipratropium/Albuterol 3 Ml Ampul.Neb) 3 ml NEB Q4HP PRN PRN Reason: Shortness Of Breath Aspirin (Aspirin 81 Mg Tab.Chew) 81 mg PO QDAY [facility] Last Admin: 07/07/22 10:42 Dose: 81 mg Ceftriaxone Sodium (Ceftriaxone 1 Gm Vial) 1 gm IV Q24H [facility] Last Admin: 07/07/22 10:42 Dose: 1 gm Docusate Sodium (Docusate Sodium 100 Mg Capsule) 100 mg PO BID [facility] Last Admin: 07/07/22 20:23 Dose: 100 mg Enoxaparin Sodium (Enoxaparin 30 Mg/0.3 Ml Syringe) 30 mg SQ DAILY [facility] Last Admin: 07/07/22 10:43 Dose: 30 mg Hydralazine HCl (Hydralazine 20 Mg/Ml Vial) 0 mg IV Q2HP PRN PRN Reason: Hypertension Magnesium Sulfate (Magnesium Sulfate) 2 gm in 50 mls @ 50 mls/hr IV UD PRN PRN Reason: Magnesium </= 1.6 Potassium Chloride 40 meq/ (Dextrose) 520 mls @ 130 mls/hr IV UD PRN PRN Reason: Potassium < 3 Labetalol HCl (Labetalol 5 Mg/Ml Ml) 0 mg IV Q2HP PRN PRN Reason: Hypertension Levothyroxine Sodium (Levothyroxine 125 Mcg Tablet) 125 mcg PO QHS [facility] Last Admin: 07/07/22 20:14 Dose: 125 mcg Memantine (Memantine 10 Mg Tablet) 10 mg PO QPM [facility] Last Admin: 07/07/22 20:19 Dose: 10 mg Metoprolol Succinate (Metoprolol Succinate 50 Mg Tab.Xl.24h) 25 mg PO BID [facility] Last Admin: 07/07/22 20:20 Dose: 25 mg Olanzapine (Olanzapine 5 Mg Tablet) 5 mg PO Q8HP PRN PRN Reason: AGGITATION Last Admin: 07/07/22 23:16 Dose: 5 mg Olanzapine (Olanzapine 10 Mg Vial) 5 mg IM Q8HP PRN PRN Reason: AGGITAITON Last Admin: 07/07/22 15:01 Dose: 5 mg Ondansetron HCl (Ondansetron 4 Mg/2 Ml Vial) 4 mg IV Q4HP PRN PRN Reason: Nausea And Vomiting Polyethylene Glycol (Polyethylene Glycol 3350 17 Gm Packet) 17 gm PO DAILYP PRN PRN Reason: Constipation Potassium Chloride (Potassium Chloride 20 Meq Tablet) 40 meq PO UD PRN PRN Reason: Potassium < 3 Potassium Chloride (Potassium Chloride 20 Meq Tablet) 40 meq PO UD PRN PRN Reason: Potssium is 3-3.5 Senna (Sennosides 1 Tablet) 2 tab PO DAILYP PRN PRN Reason: Constipation Last Admin: 07/08/22 04:29 Dose: 2 tab Sertraline HCl (Sertraline 50 Mg Tablet) 50 mg PO QAM [facility] Last Admin: 07/07/22 10:43 Dose: 50 mg Sodium Chloride (0.9 % Sodium Chloride 10 Ml Syringe) 10 ml IV Q8 [facility] Last Admin: 07/08/22 05:47 Dose: 10 ml Tamsulosin HCl (Tamsulosin 0.4 Mg Capsule) 0.4 mg PO QDAY [facility] Last Admin: 07/07/22 10:42 Dose: 0.4 mg Trazodone HCl (Trazodone Hcl 50 Mg Tablet) 50 mg PO QHS [facility] Last Admin: 07/07/22 20:23 Dose: 50 mg A/P Narrative A/P Narrative: A: *PNA (RLL): -on room air *Oropharygneal Dysphagia, mild: *Sepsis: improved *Covid (+): not requiring oxygen, no treatment needed at this time *Dehydration w/Hypernatremia: improving *Poor sleep pattern *MIRELLA on CKD IIIb: improving with ivf *Encephalopathy, acute on chronic: better, but is having sundowning now *Advanced Dementia *Depression/anxiety: *HTN: *Hypothyroidism: tsh wnl P: -Iv abx, pending BC/SC -IS/Acapella -IV hydration prn -monitor for O2 need, -Monitor and trend renal function. Avoid nephrotoxic medications -hold home ACEI/Bumex for mirella -monitor BP, adjust home BP meds if necessary -Monitor and replace electrolytes -prn zyprexa, -diet per ST -PT/OT -CM for placement needs -ppx: Lovenox DNR/DNI Time Spent With Patient Time: Total time spent is greater than 50% in coordination of care (as documented) at patient's floor/unit and/or counseling patient:
[2022-07-08] MEDS: DOCUSATE SODIUM 100 MG CAPSULE PO SCH ×2 (08:30→08:46)
[2022-07-08] MEDS: cefTRIAXone 1 GM VIAL IV SCH (08:31)
[2022-07-08] MEDS: TAMSULOSIN 0.4 MG CAPSULE PO SCH (08:32)
[2022-07-08] MEDS: ENOXAPARIN 30 MG/0.3 ML SYRINGE SQ SCH (08:43)
[2022-07-08] MEDS: ASPIRIN 81 MG TAB.CHEW PO SCH (08:44)
[2022-07-08] MEDS: OLANZapine 5 MG TABLET PO PRN (17:10)
== END 2022-07-08 17:30 | DRG 871 ==
LOC: ED 15:32 → MEDSUR 07-05 15:34
PROVIDERS: ADMIT Internal Medicine; ATTEND Internal Medicine